=== PATIENT | female | born 1965 | race Caucasian/White ===

== ENCOUNTER 2020-09-29 19:41 | Observation (INO) | payer BC ==
[2020-09-29 22:27] LABS: ALT 65 U/L (4-34); AST 84 U/L (14-36); African American GFR (CKD) >90 (>60 ml/min/1.73 sqM); Albumin 3.2 g/dL (3.5-5.0); Alkaline Phosphatase 318 U/L (38-126); Anion Gap 15 mmol/L; Blood Urea Nitrogen 9 mg/dL (7-17); Calcium 8.9 mg/dL (8.4-10.2); Carbon Dioxide 22 mmol/L (22-30); Chloride 93 mmol/L (98-107); Glucose 471 mg/dL (74-99); Magnesium 1.7 mg/dL (1.6-2.3); Non-African American GFR(CKD) >90 (>60 ml/min/1.73 sqM); Potassium 4.5 mmol/L (3.5-5.1); Sodium 130 mmol/L (137-145); Total Bilirubin 4.8 mg/dL (0.2-1.3)
[2020-09-29 23:05] LABS: Appearance,Urine Clear (Clear); Bacteria,Urine Rare /hpf; Bilirubin,Urine 1+ (Negative); Blood,Urine Moderate (Negative); Color,Urine Yellow; Glucose,Urine (UA) 4+ (Negative); Leukocyte Esterase,Urine Negative (Negative); Nitrite,Urine Negative (Negative); PH, Urine 5.5 (5.0-8.0); Protein,Urine Trace (Negative); RBC,Urine 2 /hpf (0-5); Specific Gravity,Urine 1.036 (1.001-1.035); Squamous Epithelial Cell,Urine <1 /hpf (0-4); WBC,Urine 13 /hpf (0-5)
[2020-09-29 23:10] LABS: Partial Thromboplastin Time 25.6 sec (22.0-30.0); Prothrombin Time 10.7 sec (9.0-12.0)
[2020-09-29 23:16] LABS: Ketones,Urine 3+ (Negative)
[2020-09-29 23:18] LABS: Anisocytosis Slight; Basophils % (A) 0 %; Eosinophils % (A) 0 %; HCT 45.2 % (34.0-46.0); HGB 13.6 gm/dL (11.4-16.0); Lymphocytes # (A) 1.1 k/uL (1.0-4.8); Lymphocytes % (A) 9 %; MCH 28.4 pg (25.0-35.0); MCHC 30.2 g/dL (31.0-37.0); MCV 94.1 fL (80.0-100.0); Mean Platelet Volume 8.9; Monocytes # (A) 0.9 k/uL (0-1.0); Monocytes % (A) 8 %; Neutrophils # (A) 9.9 k/uL (1.3-7.7); Neutrophils % (A) 83 %; Platelet Count 545 k/uL (150-450); RDW 17.5 % (11.5-15.5)
[2020-09-29] MEDS ORDERED: SODIUM CHLORIDE 0.9% 1,000 ML IV ONE (23:27)
[2020-09-29] MEDS ORDERED: INSULIN REGULAR 100 UNIT/ML VIAL (IV) SQ STA (23:27)
--- NOTE | 2020-09-30 00:04 | XR ---
EXAMINATION TYPE: XR chest 2V DATE OF EXAM: 09/29/2020 COMPARISON: NONE HISTORY: Edema TECHNIQUE: 2 views FINDINGS: Heart and mediastinum are normal. There is increased density over the anterior mediastinum on the lateral view that could be some atelectasis in the right upper lobe. This is not well-seen on the frontal view. Unfortunately the arms are over the heart on the lateral view. Bony thorax is intac t. There is no pleural effusion. IMPRESSION: Possible right upper lobe atelectasis. Recommend repeat lateral view with the arms raised higher. Normal heart.
--- NOTE | 2020-09-30 01:15 | US ---
EXAM: US Duplex Bilateral Lower Extremities Veins CLINICAL HISTORY: Edema x 3 weeks. No hx of DVT. Patient does not take blood thinners. TECHNIQUE: Bilateral lower extremity deep venous system is examined utilizing real time linear array sonography with graded compression, doppler sonography and color-flow sonography. Exam limited due to edema and patient body habitus. VESSELS IMAGED: Common Femoral Vein Deep Femoral Vein Greater Saphenous Vein (superficial vessel) Femoral Vein Popliteal Vein Small Saphenous Vein (superficial vessel) Proximal Calf Veins COMPARISON: NONE FINDINGS/ IMPRESSION: Right Leg: No evidence of DVT in veins imaged at this time. Left Leg: No evidence of DVT in veins imaged at this time. Limited visibility of distal femoral vein in transverse compression views. Color flow shown.
[2020-09-30] MEDS ORDERED: SODIUM CHLORIDE 0.9% 1,000 ML IV ONE (01:34)
[2020-09-30] MEDS ORDERED: NALOXONE 0.4 MG/ML 1 ML VIAL IV PRN (01:34)
[2020-09-30] MEDS ORDERED: ONDANSETRON 4 MG/2 ML VIAL IVP PRN (01:34)
[2020-09-30] MEDS ORDERED: ACETAMINOPHEN TAB 325 MG TAB PO PRN (01:34)
--- NOTE | 2020-09-30 02:06 | ED ---
Extremity Problem HPI - General Chief complaint: Extremity Problem,Nontraumatic Stated complaint: Leg problems Time Seen by Provider: 09/29/20 21:03 Source: patient Mode of arrival: wheelchair Limitations: no limitations - History of Present Illness Initial comments: This patient is a 55-year-old woman who presents to be evaluated for bilateral leg complaints. She states that her legs have been feeling heavy and difficult to move going back for a number of weeks. Patient denies any injury that had started things. There has been no back pain. She has not noted change in urination or bowel movements. No saddle anesthesia MD Complaint: extremity swelling, other -: week(s) Location: bilateral lower extremity Quality: aching, dull Consistency: constant Improves with: nothing Associated Symptoms: denies other symptoms - Related Data Previous Rx's Medication Instructions Recorded Furosemide [Lasix] 40 mg PO BID #60 tablet 10/02/20 Insulin Glargine,Hum.rec.anlog 20 unit SQ DAILY #5 pen 10/02/20 [Lantus Solostar] Potassium Chloride ER [K-Dur 20] 20 meq PO BID #60 tab 10/02/20 metFORMIN HCL [Glucophage Xr] 500 mg PO AC-BID #60 tab.er.24h 10/02/20 Allergies Allergy/AdvReac Type Severity Reaction Status Date / Time No Known Allergies Allergy Verified 09/29/20 23:07 Review of Systems ROS Statement: Those systems with pertinent positive or pertinent negative responses have been documented in the HPI. ROS Other: All systems not noted in ROS Statement are negative. Constitutional: Denies: fever, chills Respiratory: Denies: cough, dyspnea Cardiovascular: Reports: edema. Denies: chest pain, palpitations, orthopnea, syncope Gastrointestinal: Denies: abdominal pain, vomiting, diarrhea, constipation, me tamara, hematochezia Genitourinary: Denies: dysuria, frequency, hematuria Musculoskeletal: Denies: back pain Skin: Denies: rash Neurological: Denies: headache, weakness, numbness Past Medical History Past Medical History: No Reported History History of Any Multi-Drug Resistant Organisms: None Reported Past Surgical History: No Surgical Hx Reported Past Psychological History: No Psychological Hx Reported Smoking Status: Never smoker Past Alcohol Use History: None Reported Past Drug Use History: None Reported General Exam Limitations: no limitations General appearance: alert, in no apparent distress Head exam: Present: atraumatic, normocephalic Eye exam: Present: normal appearance. Absent: scleral icterus, conjunctival injection ENT exam: Present: mucous membranes dry Neck exam: Present: normal inspection Respiratory exam: Present: normal lung sounds bilaterally. Absent: respiratory distress, wheezes, rales, rhonchi, stridor Cardiovascular Exam: Present: regular rate, normal rhythm, normal heart sounds. Absent: systolic murmur, diastolic murmur, rubs, gallop GI/Abdominal exam: Present: soft. Absent: distended, tenderness, guarding, rebound, rigid, mass Extremities exam: Present: normal inspection, full ROM, normal capillary refill, pedal edema (There is pitting edema bilaterally to the knees.). Absent: calf tenderness Back exam: Present: normal inspection. Absent: CVA tenderness (R), CVA tendern ess (L) Neurological exam: Present: alert, reflexes normal. Absent: motor sensory deficit Skin exam: Present: warm, dry, intact, normal color. Absent: rash Course Vital Signs 09/29/20 09/30/20 09/30/20 19:56 01:06 06:23 Temperature 98.6 F Pulse Rate 116 H 98 Respiratory 18 109 H 18 Rate Blood Pressure 160/96 150/85 144/90 O2 Sat by Pulse 97 98 98 Oximetry 09/30/20 09/30/20 09/30/20 10:12 11:40 14:44 Temperature Pulse Rate 101 H 104 H 104 H Respiratory 17 18 18 Rate Blood Pressure 148/96 152/98 143/90 O2 Sat by Pulse 95 98 98 Oximetry 09/30/20 15:03 Temperature 97.8 F Pulse Rate Respiratory Rate Blood Pressure O2 Sat by Pulse Oximetry Medical Decision Making - Medical Decision Making Patient is a 55-year-old woman with bilateral leg complaints. She does have pitting edema bilaterally. Workup reveals apparent new onset diabetes. In order to have patient educated will admit also for glucose control. - Lab Data Result diagrams: 10/02/20 07:25 10/02/20 07:25 Lab Results 09/29/20 09/29/20 09/29/20 Range/Units 22:03 22:03 22:03 WBC 12.0 H (3.8-10.6) k/uL RBC 4.80 (3.80-5.40) m/uL Hgb 13.6 (11.4-16.0) gm/dL Hct 45.2 (34.0-46.0) % MCV 94.1 (80.0-100.0) fL MCH 28.4 (25.0-35.0) pg MCHC 30.2 L (31.0-37.0) g/dL RDW 17.5 H (11.5-15.5) % Plt Count 545 H (150-450) k/uL MPV 8.9 Neutrophils % 83 % Lymphocytes % 9 % Monocytes % 8 % Eosinophils % 0 % Basophils % 0 % Neutrophils # 9.9 H (1.3-7.7) k/uL Lymphocytes # 1.1 (1.0-4.8) k/uL Monocytes # 0.9 (0-1.0) k/uL Eosinophils # 0.0 (0-0.7) k/uL Basophils # 0.0 (0-0.2) k/uL Anisocytosis Slight PT (9.0-12.0) sec INR (<1.2) APTT (22.0-30.0) sec D-Dimer (<0.60) mg/L FEU Sodium 130 L (137-145) mmol/L Potassium 4.5 (3.5-5.1) mmol/L Chloride 93 L (98-107) mmol/L Carbon Dioxide 22 (22-30) mmol/L Anion Gap 15 mmol/L BUN 9 (7-17) mg/dL Creatinine 0.48 L (0.52-1.04) mg/dL Est GFR (CKD-EPI)AfAm >90 (>60 ml/min/1.73 sqM) Est GFR (CKD-EPI)NonAf >90 (>60 ml/min/1.73 sqM) Glucose 471 H (74-99) mg/dL Calcium 8.9 (8.4-10.2) mg/dL Magnesium 1.7 (1.6-2.3) mg/dL Total Bilirubin 4.8 H (0.2-1.3) mg/dL AST 84 H (14-36) U/L ALT 65 H (4-34) U/L Alkaline Phosphatase 318 H (38-126) U/L Troponin I (0.000-0.034) ng/mL NT-Pro-B Natriuret Pep pg/mL Total Protein 7.0 (6.3-8.2) g/dL Albumin 3.2 L (3.5-5.0) g/dL Urine Color Yellow Urine Appearance Clear (Clear) Urine pH 5.5 (5.0-8.0) Ur Specific [place] 1.036 H (1.001-1.035) Urine Protein Trace H (Negative) Urine Glucose (UA) 4+ H (Negative) Urine Ketones 3+ H (Negative) Urine Blood Moderate H (Negative) Urine Nitrite Negative (Negative) Urine Bilirubin 1+ H (Negative) Urine Urobilinogen 8.0 (<2.0) mg/dL Ur Leukocyte Esterase Negative (Negative) Urine RBC 2 (0-5) /hpf Urine WBC 13 H (0-5) /hpf Ur Squamous Epith Cells <1 (0-4) /hpf Urine Bacteria Rare H (None) /hpf 09/29/20 09/29/20 09/29/20 Range/Units 22:03 22:03 22:03 WBC (3.8-10.6) k/uL RBC (3.80-5.40) m/uL Hgb (11.4-16.0) gm/dL Hct (34.0-46.0) % MCV (80.0-100.0) fL MCH (25.0-35.0) pg MCHC (31.0-37.0) g/dL RDW (11.5-15.5) % Plt Count (150-450) k/uL MPV Neutrophils % % Lymphocytes % % Monocytes % % Eosinophils % % Basophils % % Neutrophils # (1.3-7.7) k/uL Lymphocytes # (1.0-4.8) k/uL Monocytes # (0-1.0) k/uL Eosinophils # (0-0.7) k/uL Basophils # (0-0.2) k/uL Anisocytosis PT 10.7 (9.0-12.0) sec INR 1.0 (<1.2) APTT 25.6 (22.0-30.0) sec D-Dimer 0.82 H (<0.60) mg/L FEU Sodium (137-145) mmol/L Potassium (3.5-5.1) mmol/L Chloride (98-107) mmol/L Carbon Dioxide (22-30) mmol/L Anion Gap mmol/L BUN (7-17) mg/dL Creatinine (0.52-1.04) mg/dL Est GFR (CKD-EPI)AfAm (>60 ml/min/1.73 sqM) Est GFR (CKD-EPI)NonAf (>60 ml/min/1.73 sqM) Glucose (74-99) mg/dL Calcium (8.4-10.2) mg/dL Magnesium (1.6-2.3) mg/dL Total Bilirubin (0.2-1.3) mg/dL AST (14-36) U/L ALT (4-34) U/L Alkaline Phosphatase (38-126) U/L Troponin I <0.012 (0.000-0.034) ng/mL NT-Pro-B Natriuret Pep 335 pg/mL Total Protein (6.3-8.2) g/dL Albumin (3.5-5.0) g/dL Urine Color Urine Appearance (Clear) Urine pH (5.0-8.0) Ur Specific [place] (1.001-1.035) Urine Protein (Negative) Urine Glucose (UA) (Negative) Urine Ketones (Negative) Urine Blood (Negative) Urine Nitrite (Negative) Urine Bilirubin (Negative) Urine Urobilinogen (<2.0) mg/dL Ur Leukocyte Esterase (Negative) Urine RBC (0-5) /hpf Urine WBC (0-5) /hpf Ur Squamous Epith Cells (0-4) /hpf Urine Bacteria (None) /hpf Disposition Clinical Impression: Diabetes mellitus, new onset, Leg edema Disposition: ADMITTED IP TO THIS HOSP Condition: Good
[2020-09-30] MEDS: SODIUM CHLORIDE 0.9% 1,000 ML IV SCH ×2 (03:41→11:44)
[2020-09-30 07:53] LABS: Glucose,Whole Blood 398 mg/dL (75-99)
[2020-09-30] MEDS: INSULIN ASPART (NovoLOG) 100 UNIT/ML VIAL SQ SCH ×4 (07:56→20:17)
[2020-09-30 11:59] LABS: Glucose,Whole Blood 324 mg/dL (75-99)
[2020-09-30] MEDS ORDERED: MAGNESIUM SULFATE-D5W PMX 1 GM in DEXTROSE/WATER 1 100ML.BAG IVPB ONE (12:06)
[2020-09-30] MEDS: FUROSEMIDE 10 MG/ML 4 ML VIAL IV SCH ×2 (12:21→20:18)
--- NOTE | 2020-09-30 13:53 | P.HPIM ---
History of Present Illness 64-year-old pleasant female came in with complaints of bilateral lower limb swelling which has been going on for a few weeks on and off. Patient denied any short of breath orthopnea or proximal nocturnal dyspnea BNP is only 300. Luis pierce doesn't have any JVD. Chest x-ray did not show any pneumonia or CHF. Patient was also complaining of polyuria or polydipsia along with cramping in both legs found to have hyponatremia and hyperglycemia with blood sugars going up to 400. Patient is not a known diabetic. Review of Systems REVIEW OF SYSTEMS: CONSTITUTIONAL: No fever, no malaise, no fatigue. HEENT: No recent visual problems or hearing problems. Denied any sore throat. CARDIOVASCULAR: No chest pain, orthopnea, PND, no palpitations, no syncope. PULMONARY: No shortness of breath, no cough, no hemoptysis. GASTROINTESTINAL: No diarrhea, no nausea, no vomiting, no abdominal pain. NEUROLOGICAL: No headaches, no weakness, no numbness. HEMATOLOGICAL: Denies any bleeding or petechiae. GENITOURINARY: Denies any burning micturition, frequency, or urgency. MUSCULOSKELETAL/RHEUMATOLOGICAL: Denies any joint pain, swelling, or any muscle pain. ENDOCRINE: As mentioned in HPI The rest of the 14-point review of systems is negative. Past Medical History Past Medical History: No Reported History History of Any Multi-Drug Resistant Organisms: None Reported Past Surgical History: No Surgical Hx Reported Past Psychological History: No Psychological Hx Reported Smoking Status: Never smoker Past Alcohol Use History: None Reported Past Drug Use History: None Reported Medications and Allergies Home Medications Medication Instructions Recorded Confirmed Type No Known Home Medications 09/29/20 09/29/20 History Allergies Allergy/AdvReac Type Severity Reaction Status Date / Time No Known Allergies Allergy Verified 09/29/20 23:07 Physical Exam Vitals: Vital Signs Temp Pulse Resp BP Pulse Ox 09/30/20 11:40 104 H 18 152/98 98 09/30/20 10:12 101 H 17 148/96 95 09/30/20 06:23 98 18 144/90 98 09/30/20 01:06 109 H 150/85 98 09/29/20 19:56 98.6 F 116 H 18 160/96 97 Intake and Output 09/29/20 09/30/20 09/30/20 22:59 06:59 14:59 Other: Weight 63.503 kg PHYSICAL EXAMINATION: GENERAL: The patient is alert and oriented x3, not in any acute distress. Well developed, well nourished. HEENT: Pupils are round and equally reacting to light. EOMI. No scleral icterus. No conjunctival pallor. Normocephalic, atraumatic. No pharyngeal erythema. No thyromegaly. CARDIOVASCULAR: S1 and S2 present. No murmurs, rubs, or gallops. PULMONARY: Chest is clear to auscultation, no wheezing or crackles. ABDOMEN: Soft, nontender, nondistended, normoactive bowel sounds. No palpable organomegaly. MUSCULOSKELETAL: No joint swelling or deformity. EXTREMITIES: No cyanosis, clubbing, 2+ pitting pedal edema extending up to bilateral knees NEUROLOGICAL: Gross neurological examination did not reveal any focal deficits. SKIN: No rashes. Results CBC & Chem 7: 09/29/20 22:03 09/29/20 22:03 Labs: Abnormal Lab Results - Last 24 Hours (Table) 09/29/20 09/29/20 09/29/20 Range/Units 22:03 22:03 22:03 WBC 12.0 H (3.8-10.6) k/uL MCHC 30.2 L (31.0-37.0) g/dL RDW 17.5 H (11.5-15.5) % Plt Count 545 H (150-450) k/uL Neutrophils # 9.9 H (1.3-7.7) k/uL D-Dimer (<0.60) mg/L FEU Sodium 130 L (137-145) mmol/L Chloride 93 L (98-107) mmol/L Creatinine 0.48 L (0.52-1.04) mg/dL Glucose 471 H (74-99) mg/dL POC Glucose (mg/dL) (75-99) mg/dL Total Bilirubin 4.8 H (0.2-1.3) mg/dL AST 84 H (14-36) U/L ALT 65 H (4-34) U/L Alkaline Phosphatase 318 H (38-126) U/L Albumin 3.2 L (3.5-5.0) g/dL Ur Specific [place] 1.036 H (1.001-1.035) Urine Protein Trace H (Negative) Urine Glucose (UA) 4+ H (Negative) Urine Ketones 3+ H (Negative) Urine Blood Moderate H (Negative) Urine Bilirubin 1+ H (Negative) Urine WBC 13 H (0-5) /hpf Urine Bacteria Rare H (None) /hpf 09/29/20 09/30/20 09/30/20 Range/Units 22:03 07:51 11:57 WBC (3.8-10.6) k/uL MCHC (31.0-37.0) g/dL RDW (11.5-15.5) % Plt Count (150-450) k/uL Neutrophils # (1.3-7.7) k/uL D-Dimer 0.82 H (<0.60) mg/L FEU Sodium (137-145) mmol/L Chloride (98-107) mmol/L Creatinine (0.52-1.04) mg/dL Glucose (74-99) mg/dL POC Glucose (mg/dL) 398 H 324 H (75-99) mg/dL Total Bilirubin (0.2-1.3) mg/dL AST (14-36) U/L ALT (4-34) U/L Alkaline Phosphatase (38-126) U/L Albumin (3.5-5.0) g/dL Ur Specific [place] (1.001-1.035) Urine Protein (Negative) Urine Glucose (UA) (Negative) Urine Ketones (Negative) Urine Blood (Negative) Urine Bilirubin (Negative) Urine WBC (0-5) /hpf Urine Bacteria (None) /hpf Assessment and Plan Plan: Bilateral lower x-ray swelling: Rule out DVT doesn't have CHF probably chronic venous insufficiency patient was started on IV Lasix. -Bilateral lower extremity cramping secondary to hyponatremia -New diagnosis of type 2 diabetes mellitus and globin A1c is pending. Patient will be started on 20 units of long-acting insulin along with sliding scale patient will be started on metformin upon discharge along with long-acting insulin. -Pseudohyponatremia secondary to hyperglycemia -Hypervolemic hyponatremia: Expected to improve with Lasix next and- Mild nonspecific elevation of liver enzymes no further intervention at this time - leukocytosis reactive. -DVT prophylaxis early ambulation
[2020-09-30 17:35] LABS: Glucose,Whole Blood 362 mg/dL (75-99)
[2020-09-30 20:06] LABS: Glucose,Whole Blood 388 mg/dL (75-99)
[2020-09-30] MEDS: INSULIN DETEMIR (LEVEMIR) 100 UNIT/ML SYR SQ SCH (20:17)
[2020-10-01 06:45] LABS: African American GFR (CKD) >90 (>60 ml/min/1.73 sqM); Anion Gap 1 mmol/L; Blood Urea Nitrogen 9 mg/dL (7-17); Calcium 7.6 mg/dL (8.4-10.2); Carbon Dioxide 33 mmol/L (22-30); Chloride 101 mmol/L (98-107); Glucose 139 mg/dL (74-99); Non-African American GFR(CKD) >90 (>60 ml/min/1.73 sqM); Potassium 3.8 mmol/L (3.5-5.1); Sodium 135 mmol/L (137-145)
[2020-10-01 07:11] LABS: Glucose,Whole Blood 139 mg/dL (75-99)
[2020-10-01] MEDS: INSULIN ASPART (NovoLOG) 100 UNIT/ML VIAL SQ SCH ×4 (08:21→20:53)
[2020-10-01] MEDS: FUROSEMIDE 10 MG/ML 4 ML VIAL IV SCH ×2 (08:22→16:22)
[2020-10-01 12:08] LABS: Glucose,Whole Blood 303 mg/dL (75-99)
--- NOTE | 2020-10-01 15:35 | P.PN ---
Subjective Patient was admitted for peripheral edema secondary to chronic venous stasis without any evidence of congestive heart failure, liver disease or kidney disease. Patient's albumin is slightly low. Patient is diagnosed with a type 2 diabetes mellitus this is a new diagnosis patient blood sugars are well controlled with 20 units of Lantus at this time. Patient has mildly elevated d- dimer the pretest probability for pulmonary embolism is low will not do any further testing. Patient urinated well, after that patient urine output has come down we'll increase the dose of Lasix to 40 mg every 8 hourly. Ruled out DVT. Constitutional: Denied any fatigue denied any fever. Cardio vascular: denied any chest pain, palpitations Gastrointestinal denied any nausea vomiting Pulmonary: Denied any shortness of breath cough Neurologic denied any new focal deficits All inpatient medications were reviewed and appropriate changes in these medications as dictated in the interval history and assessment and plan. Objective - Vital Signs Vital signs: Vital Signs Temp 98.0 F 10/01/20 14:59 Pulse 107 H 10/01/20 14:59 Resp 20 10/01/20 14:59 BP 132/80 10/01/20 14:59 Pulse Ox 97 10/01/20 14:59 Intake & Output 09/30/20 10/01/20 10/01/20 18:59 06:59 18:59 Weight 63.503 kg Other: Voiding Method Toilet # Voids 3 # Bowel Movements 1 - Exam PHYSICAL EXAMINATION: GENERAL: The patient is alert and oriented x3, not in any acute distress. Well developed, well nourished. HEENT: Pupils are round and equally reacting to light. EOMI. No scleral icterus. No conjunctival pallor. Normocephalic, atraumatic. No pharyngeal erythema. No thyromegaly. CARDIOVASCULAR: S1 and S2 present. No murmurs, rubs, or gallops. PULMONARY: Chest is clear to auscultation, no wheezing or crackles. ABDOMEN: Soft, nontender, nondistended, normoactive bowel sounds. No palpable organomegaly. MUSCULOSKELETAL: No joint swelling or deformity. EXTREMITIES: No cyanosis, clubbing, 2+ pitting pedal edema extending up to bila teral knees NEUROLOGICAL: Gross neurological examination did not reveal any focal deficits. SKIN: No rashes. - Labs CBC & Chem 7: 09/29/20 22:03 06/05/21 05:58 Labs: Abnormal Lab Results - Last 24 Hours (Table) 09/30/20 09/30/20 10/01/20 Range/Units 17:34 20:05 05:58 Sodium 135 L (137-145) mmol/L Carbon Dioxide 33 H (22-30) mmol/L Creatinine 0.49 L (0.52-1.04) mg/dL Glucose 139 H (74-99) mg/dL POC Glucose (mg/dL) 362 H 388 H (75-99) mg/dL Calcium 7.6 L (8.4-10.2) mg/dL 10/01/20 10/01/20 Range/Units 07:09 12:07 Sodium (137-145) mmol/L Carbon Dioxide (22-30) mmol/L Creatinine (0.52-1.04) mg/dL Glucose (74-99) mg/dL POC Glucose (mg/dL) 139 H 303 H (75-99) mg/dL Calcium (8.4-10.2) mg/dL Assessment and Plan Plan: Bilateral lower x-ray swelling: Rule out DVT doesn't have CHF probably chronic venous insufficiency patient was started on IV Lasix. -Bilateral lower extremity cramping secondary to hyponatremia, hyponatremia improved -New diagnosis of type 2 diabetes mellitus and globin A1c is pending. Patient will be started on 20 units of long-acting insulin along with sliding scale, well controlled blood sugars -Pseudohyponatremia secondary to hyperglycemia -Hypervolemic hyponatremia: Improved with Lasix Mild nonspecific elevation of liver enzymes no further intervention at this time we'll repeat liver enzymes tomorrow - leukocytosis reactive. -DVT prophylaxis early ambulation
[2020-10-01] MEDS: ENOXAPARIN 40 MG/0.4 ML SYRINGE SQ SCH (16:22)
[2020-10-01 17:25] LABS: Glucose,Whole Blood 429 mg/dL (75-99)
[2020-10-01 20:34] LABS: Glucose,Whole Blood 378 mg/dL (75-99)
[2020-10-01] MEDS: INSULIN DETEMIR (LEVEMIR) 100 UNIT/ML SYR SQ SCH (20:53)
[2020-10-02] MEDS: FUROSEMIDE 10 MG/ML 4 ML VIAL IV SCH ×2 (00:07→08:01)
[2020-10-02 07:13] LABS: Glucose,Whole Blood 153 mg/dL (75-99)
[2020-10-02 07:46] VITALS: BP 118/78; PULSE 94; RESP 16; TEMP 97.8
[2020-10-02] MEDS: INSULIN ASPART (NovoLOG) 100 UNIT/ML VIAL SQ SCH ×2 (08:02→13:02)
[2020-10-02] MEDS: ENOXAPARIN 40 MG/0.4 ML SYRINGE SQ SCH (08:53)
[2020-10-02 12:05] LABS: Glucose,Whole Blood 256 mg/dL (75-99)
--- NOTE | 2020-10-02 12:23 | P.DS ---
Providers Date of admission: 09/30/20 01:35 Attending physician: Papa Graves Primary care physician: Stated None Hospital Course: Patient was admitted for peripheral edema secondary to chronic venous stasis without any evidence of congestive heart failure, liver disease or kidney disease. Patient's albumin is slightly low. Patient is diagnosed with a type 2 diabetes mellitus this is a new diagnosis patient blood sugars are well controlled with 20 units of Lantus at this time. Patient has mildly elevated d- dimer the pretest probability for pulmonary embolism is low will not do any further testing. Patient urinated well, after that patient urine output has come down we'll increase the dose of Lasix to 40 mg every 8 hourly. Ruled out DVT. 10/02/2020 Patient still has significant swelling but patient wanted to go home today patient will be discharged on Lasix with repeat basic metabolic profile as an outpatient. Patient will need to check her blood sugars twice a day diabetic education was provided, patient will follow-up with the certified lactation educator as an outpatient. Appropriate prescriptions for glucometer and other supplies were provided PHYSICAL EXAMINATION: GENERAL: The patient is alert and oriented x3, not in any acute distress. Well developed, well nourished. HEENT: Pupils are round and equally reacting to light. EOMI. No scleral icterus. No conjunctival pallor. Normocephalic, atraumatic. No pharyngeal erythema. No thyromegaly. CARDIOVASCULAR: S1 and S2 present. No murmurs, rubs, or gallops. PULMONARY: Chest is clear to auscultation, no wheezing or crackles. ABDOMEN: Soft, nontender, nondistended, normoactive bowel sounds. No palpable organomegaly. MUSCULOSKELETAL: No joint swelling or deformity. EXTREMITIES: No cyanosis, clubbing, extensive bilateral pitting pedal edema NEUROLOGICAL: Gross neurological examination did not reveal any focal deficits. SKIN: No rashes. Assessment and Plan Plan: Bilateral lower x-ray swelling: Rule out DVT doesn't have CHF probably chronic venous insufficiency patient is being discharged on oral Lasix -Bilateral lower extremity cramping secondary to hyponatremia, hyponatremia improved -New diagnosis of type 2 diabetes mellitus and globin A1c is 11. Highly fluctuating blood sugars patient will be discharged on 20 units of Lantus along with metformin twice a day -Pseudohyponatremia secondary to hyperglycemia, resolved -Hypervolemic hyponatremia: Improved with Lasix Mild nonspecific elevation of liver enzymes no further intervention at this time we'll repeat liver enzymes tomorrow - leukocytosis reactive. Patient Condition at Discharge: Good Plan - Discharge Summary Discharge Rx Participant: Yes New Discharge Prescriptions: New Potassium Chloride ER [K-Dur 20] 20 meq PO BID #60 tab Insulin Glargine,Hum.rec.anlog [Lantus Solostar] 20 unit SQ DAILY #5 pen Furosemide [Lasix] 40 mg PO BID #60 tablet metFORMIN HCL [Glucophage Xr] 500 mg PO AC-BID #60 tab.er.24h Discharge Medication List Furosemide [Lasix] 40 mg PO BID #60 tablet 10/02/20 [Rx] Insulin Glargine,Hum.rec.anlog [Lantus Solostar] 20 unit SQ DAILY #5 pen 10/02/20 [Rx] Potassium Chloride ER [K-Dur 20] 20 meq PO BID #60 tab 10/02/20 [Rx] metFORMIN HCL [Glucophage Xr] 500 mg PO AC-BID #60 tab.er.24h 10/02/20 [Rx] Follow up Appointment(s)/Referral(s): Johnny Mitchell MD [STAFF PHYSICIAN] - 3 Days (This appointment would be a hospital follow up and new patient appointment. ) Ambulatory/Diagnostic Orders: Basic Metabolic Panel [LAB.AMB] Time Frame: 3 Days, Location: None Selected Patient Instructions/Handouts: Type 2 Diabetes in Adults: New Diagnosis (DC) Activity/Diet/Wound Care/Special Instructions: Will need top notify [facility] at discharge to have glucometer delievered Diabetic testing supplies are ordered through [facility] at [facility]. They can be contacted at [phone] when more supplies needed. Discharge Disposition: HOME SELF-CARE
[2020-10-02 12:25] LABS: HCT 37.2 % (37.2-46.3); HGB 11.5 g/dL (12.0-15.0); MCH 28.8 pg (27.0-32.0); MCHC 30.9 g/dL (32.0-37.0); MCV 93.2 fL (80.0-97.0); Mean Platelet Volume 10.8 fL (9.5-12.2); Platelet Count 438 X 10*3/uL (140-440); RBC 3.99 X 10*6/uL (4.10-5.20); RDW 17.6 % (11.5-14.5); WBC 10.62 X 10*3/uL (4.50-10.00)
[2020-10-02 12:48] LABS: African American GFR (CKD) 134.9 (60.0-200.0); Albumin 2.8 g/dL (3.80-4.90); Albumin/Globulin Ratio 0.88 (1.60-3.17); Anion Gap 11.4 mmol/L (4.00-12.00); BUN/Creat Ratio 32.5 Ratio (12.00-20.00); Calcium 7.8 mg/dL (8.7-10.3); Carbon Dioxide 32.6 mmol/L (21.6-31.8); Globulin 3.2 g/dL (1.6-3.3); Non-African American GFR(CKD) 116.4 (60.0-200.0); Potassium 3.6 mmol/L (3.5-5.5); Total Bilirubin 3.4 mg/dL (0.3-1.2)
== END 2020-10-02 15:54 | disposition home or self-care (01) ==
LOC: EC 19:41 → 1SOBS 09-30 01:35 → 6NMEDSUR 09-30 07:31
PROVIDERS: ADMIT Hospitalist; ATTEND Hospitalist
DX: E11.65 Type 2 diabetes mellitus with hyperglycemia (principal); E87.1 Hypo-osmolality and hyponatremia; E87.70 Fluid overload, unspecified; R60.0 Localized edema; I87.8 Other specified disorders of veins; D72.829 Elevated white blood cell count, unspecified; Z20.822 Contact with and (suspected) exposure to COVID-19
CPT/HCPCS: 96376 ×3; 96372; 96361; 96365; 96375; 99285; 36415; 85379; 83880; 80053 ×2; 80048; 83735; 84484; 85025; 85027; 85610; 85730; 81001; 83036; 87635; 71046; 93970; G0378 ×3; J1940 ×3; J1650 ×2; J3475

== ENCOUNTER 2020-10-04 10:36 | Inpatient (IN) | payer BC ==
[2020-10-05 14:18] VITALS: BMI 33.4
[2020-10-10 20:09] VITALS: RESP 16
[2020-10-11 05:34] VITALS: BP 109/70; PULSE 85; TEMP 98.1
== END 2020-10-11 11:08 | disposition home or self-care (01) | DRG 435 ==
LOC: 5NMEDONC 13:26
PROVIDERS: ADMIT Family Medicine; ATTEND Family Medicine
PROC: 0FB23ZX Excision of Left Lobe Liver, Percutaneous Approach, Diagnostic (ICD-10-PCS; principal; 2020-10-07)
PROC: 0DBP8ZX Excision of Rectum, Via Natural or Artificial Opening Endoscopic, Diagnostic (ICD-10-PCS; 2020-10-10)
DX: C78.7 Secondary malignant neoplasm of liver and intrahepatic bile duct (principal); K72.00 Acute and subacute hepatic failure without coma; C78.5 Secondary malignant neoplasm of large intestine and rectum; R18.8 Other ascites; K62.5 Hemorrhage of anus and rectum; C43.9 Malignant melanoma of skin, unspecified; E11.65 Type 2 diabetes mellitus with hyperglycemia; Z79.4 Long term (current) use of insulin; Z20.822 Contact with and (suspected) exposure to COVID-19; E87.6 Hypokalemia; D64.9 Anemia, unspecified; D25.9 Leiomyoma of uterus, unspecified; I89.0 Lymphedema, not elsewhere classified; K59.00 Constipation, unspecified; R19.7 Diarrhea, unspecified; R26.2 Difficulty in walking, not elsewhere classified; E66.9 Obesity, unspecified; Z68.33 Body mass index [BMI] 33.0-33.9, adult; Z79.899 Other long term (current) drug therapy; Z71.3 Dietary counseling and surveillance; Z83.79 Family history of other diseases of the digestive system
CPT/HCPCS: 45385; 47000; 71260; 74176; 76700; 76830; 77012; 80053; 80074; 82103; 82105; 82140; 82248; 82272; 82390; 82728; 83516; 83540; 83550; 83690; 84165; 84681; 85025; 85610; 86038; 86301; 86304; 86376; 87635; 88305; 88307; 88341; 88342; 93005

== ENCOUNTER → 2020-10-21 | Outpatient (CLI) | payer BC ==
--- NOTE | 2020-10-22 03:41 | MR ---
EXAMINATION TYPE: MR brain wo/w con DATE OF EXAM: 10/21/2020 COMPARISON: None HISTORY: Melanoma, evaluate for metastatic disease. CONTRAST: Standard multiplanar, multisequence MRI departmental protocol utilizing 9.5 mL intravenous Gadavist g adolinium contrast. Ventricles have fairly normal size. There is no mass effect nor midline shift. There is no sign of in tracranial hemorrhage. Diffusion images show no evidence of an acute infarct. The no-white matter s tructures have fairly normal signal pattern. There is no evidence of cerebral edema. The brainstem is intact. Corpus callosum is intact. Sella turcica appears normal. Orbits appear normal. There is no r etro-orbital mass. There is normal enhancement of the venous sinuses. I see no pathologic enhancement. IMPRESSION: Normal MR scan of the brain. No evidence of metastatic disease.
== END | disposition home or self-care (01) ==
LOC: RADMRIMAIN 14:46
PROVIDERS: ATTEND Internal Medicine Hematology & Oncology
DX: C43.9 Malignant melanoma of skin, unspecified (principal)
CPT/HCPCS: 70553; A9585

== ENCOUNTER 2020-10-28 07:20 | Day surgery (SDC) | payer BC ==
[2020-10-26 17:40] VITALS: BMI 31.4
[~2020-10-28 07:20] MED LIST: LACTATED RINGERS 1,000 ML IV SCH
[2020-10-28] MEDS ORDERED: LIDOCAINE 1% (10MG/ML) FOR IV START INTRADERMA ONE (07:57)
[2020-10-28 07:59] LABS: Glucose,Whole Blood 237 mg/dL (75-99)
[2020-10-28 08:01] VITALS: TEMP 96.9
[2020-10-28] MEDS ORDERED: PROPOFOL 10 MG/ML 20 ML VIAL IV ONE (08:06)
[2020-10-28 08:33] VITALS: RESP 16
--- NOTE | 2020-10-28 08:34 | P.PCN ---
Date of Procedure: 10/28/20 Procedure(s) Performed: BRIEF HISTORY: Patient is a 55-year-old pleasant white female scheduled for an elective colonoscopy as a part of evaluation of metastatic liver disease noted on recent CAT scan in the first week of September during recent hospitalization. She had liver biopsy done that showed evidence of metastatic malignancy but definite characterization was not performed because of insufficient specimen. Subsequently she had a colonoscopy by Dr. Ahmadi that revealed a large distal rectal polyp that was removed by snare polypectomy which showed malignant melanoma involvement to the margin with lymphovascular invasion. However the colonoscopy was not completed because of the poor prep. She is scheduled for repeat colonoscopy to evaluate the rest of the colon PROCEDURE PERFORMED: Colonoscopy with biopsy and snare polypectomy. PREOPERATIVE DIAGNOSIS: Follow-up malignant melanoma of the distal rectum noted on recent colonoscopy performed 2 weeks ago. IV sedation per Anesthesia. PROCEDURE: After informed consent was obtained, the patient, was brought into the endoscopy unit. IV sedation was administered by Anesthesia under continuous monitoring. Digital rectal examination revealed some elective irregularity of the anal canal along the left side.. Initially the Olympus CF-160 flexible video colonoscope was then inserted in the rectum, gradually advanced into the cecum without any difficulty. Careful examination was performed as the scope was gradually being withdrawn. Ileocecal valve and the appendiceal orifice were visualized and appeared normal. Prep was excellent. Mucosa of the cecum, ascending colon, transverse colon, descending colon, appeared normal. The distal sigmoid colon there was a 5 mm polyp removed by snare polypectomy. In the proximal rectum there was another 5 mm polyp removed by snare polypectomy. Retroflexion was performed in the rectum and no lesions were seen. In the anal canal there was a 1.5-2 cm clean-based ulcer with slightly irregular margins noted. This was at the site of previous polypectomy. Multiple biopsies from done from the margins of the ulcer. The patient tolerated the procedure well. IMPRESSION: 1.5-2 cm clean-based ulcer at the site of previous polypectomy in the anal canal with slightly friable margins with no residual polyp. Status post multiple biopsies from the margin of the ulcer 5 mm proximal rectal polyp status post polypectomy 5 mm distal sigmoid colon polyp status post polypectomy RECOMMENDATIONS: Findings of this examination were discussed with the patient as well as a family. She was advised to follow with the biopsy results. She'll follow with Dr. Dailey scheduled.
[2020-10-28 08:37] LABS: Glucose,Whole Blood 253 mg/dL (75-99)
[2020-10-28] MEDS ORDERED: INSULIN ASPART (NovoLOG) 100 UNIT/ML VIAL SQ ONE (08:47)
[2020-10-28 08:52] VITALS: BP 130/84; PULSE 84
[2020-10-28 09:24] LABS: Glucose,Whole Blood 233 mg/dL (75-99)
== END 2020-10-28 09:36 | disposition home or self-care (01) ==
LOC: ORWHC2ENDO 07:20
PROVIDERS: ATTEND Internal Medicine Gastroenterology
DX: D12.8 Benign neoplasm of rectum (principal); C21.0 Malignant neoplasm of anus, unspecified; E11.9 Type 2 diabetes mellitus without complications; Z79.4 Long term (current) use of insulin; C20 Malignant neoplasm of rectum; K63.5 Polyp of colon
CPT/HCPCS: 88305; 88342; 88341; 45380; 45385; J2704

== ENCOUNTER → 2020-12-05 | Outpatient (CLI) | payer BC ==
--- NOTE | 2020-12-05 10:43 | US ---
EXAMINATION TYPE: US venous doppler duplex LE RT DATE OF EXAM: 12/05/2020 10:36 AM COMPARISON: US 09/30/2020 CLINICAL HISTORY: R22.41 SWELLING OF RIGHT LOWER LIMB,R00.0,R06.02. SIDE PERFORMED: Right TECHNIQUE: The lower extremity deep venous system is examined utilizing real time linear array sonog jignesh with graded compression, doppler sonography and color-flow sonography. VESSELS IMAGED: Common Femoral Vein Deep Femoral Vein Greater Saphenous Vein * Femoral Vein Popliteal Vein Small Saphenous Vein * Proximal Calf Veins (* superficial vessels) Right Leg: Negative for DVT IMPRESSION: 1. Right lower extremity ultrasound negative for deep venous thrombosis.
[2020-12-05 11:25] LABS: African American GFR (CKD) >90 (>60 ml/min/1.73 sqM); Blood Urea Nitrogen 20 mg/dL (7-17); Non-African American GFR(CKD) >90 (>60 ml/min/1.73 sqM)
--- NOTE | 2020-12-05 12:18 | CT ---
EXAMINATION TYPE: CT angio chest DATE OF EXAM: 12/05/2020 11:59 AM COMPARISON: HISTORY: SOB, Rt lower leg swelling CT DLP: 440 mGycm Automated exposure control for dose reduction was used. CONTRAST: CTA scan of the thorax is performed with IV Contrast, patient injected with 59 mL of Isovue 370, pulm onary embolism protocol. . FINDINGS: LUNGS: There are multiple subpleural less than 5 mm pulmonary nodules. Localized area pleural thicken ing involving the lateral right midlung noted. 5 mm nodule left lower lobe.. There is no pleural ef fusion or pneumothorax seen. The tracheobronchial tree is patent. MEDIASTINUM: There is optimal enhancement of the pulmonary artery and its branches, there is no CT ev idence for central pulmonary embolism. There are no greater than 1 cm hilar or mediastinal lymph nod es. No pericardial effusion is seen. OTHER: There is markedly enlarged with suspected intrahepatic lesions. Small amount of fluid seen an terior and superior to the liver. IMPRESSION: 1. Suboptimal enhancement of the pulmonary arteries with no diagnostic evidence of central pulmonary embolism. 2. Multiple subpleural and intraparenchymal 5 mm or less pulmonary nodules the largest seen within th e left lower lobe measuring 5 mm too small to characterize. However, nodule in the left lower lobe pr eviously measured approximately 2.5 mm suggesting interval growth. Metastases in the differential yash gnosis. 3. Marked hepatomegaly with suspected intrahepatic multiple masses and trace amount of ascites.
== END | disposition home or self-care (01) ==
LOC: RADUSWWP 10:21
PROVIDERS: ATTEND Internal Medicine Hematology & Oncology
DX: R00.0 Tachycardia, unspecified (principal); R22.41 Localized swelling, mass and lump, right lower limb
CPT/HCPCS: 82565; 84520; 93971; 71275; Q9967

== ENCOUNTER 2021-01-25 15:28 | Inpatient (IN) | payer BC ==
[2021-01-25] MEDS ORDERED: SODIUM CHLORIDE 0.9% 1,000 ML IV STA (19:08)
--- NOTE | 2021-01-25 19:31 | ED ---
General Adult HPI - General Chief complaint: Recheck/Abnormal Lab/Rx Stated complaint: Difficulty walking Time Seen by Provider: 01/25/21 19:06 Source: patient Mode of arrival: wheelchair Limitations: no limitations - History of Present Illness Initial comments: 55-year-old female with a past medical history of diabetes, melanoma with suspected metastasis to the liver for presents to the emergency room for a chief complaint of jaundice. Patient states over the past 4 or 5 days she has become more jaundiced than normal. She states she has become weaker and had trouble walking. Denies abdominal pain. She called her doctor today who recommended s he come to the emergency room for admission.Patient has no other complaints at this time including shortness of breath, chest pain, nausea or vomiting, headache, or visual changes. - Related Data Home Medications Medication Instructions Recorded Confirmed Insulin Glargine,Hum.rec.anlog 20 unit SQ HS 10/26/20 10/28/20 [Lantus Solostar Pen] Previous Rx's Medication Instructions Recorded Furosemide [Lasix] 40 mg PO BID #60 tablet 10/02/20 Potassium Chloride ER [K-Dur 20] 20 meq PO BID #60 tab 10/02/20 metFORMIN HCL [Glucophage Xr] 500 mg PO AC-BID #60 tab.er.24h 10/02/20 Allergies Allergy/AdvReac Type Severity Reaction Status Date / Time No Known Allergies Allergy Verified 01/25/21 16:37 Review of Systems ROS Statement: Those systems with pertinent positive or pertinent negative responses have been documented in the HPI. ROS Other: All systems not noted in ROS Statement are negative. Past Medical History Past Medical History: Cancer, Diabetes Mellitus, Liver Disease Additional Past Medical History / Comment(s): colon polyp indicated cancer. swelling feet and lower legs History of Any Multi-Drug Resistant Organisms: None Reported Past Surgical History: No Surgical Hx Reported, Orthopedic Surgery Additional Past Surgical History / Comment(s): colonoscopy. lt wrist surgery age 5 Past Anesthesia/Blood Transfusion Reactions: No Reported Reaction Past Psychological History: Anxiety Smoking Status: Never smoker Past Alcohol Use History: None Reported Past Drug Use History: None Reported General Exam Limitations: no limitations General appearance: alert, in no apparent distress Head exam: Present: atraumatic Eye exam: Present: normal appearance, PERRL, EOMI. Absent: scleral icterus, conjunctival injection ENT exam: Present: normal exam, mucous membranes moist Neck exam: Present: normal inspection, full ROM. Absent: tenderness Respiratory exam: Present: normal lung sounds bilaterally. Absent: respiratory distress, wheezes Cardiovascular Exam: Present: regular rate, normal rhythm, normal heart sounds GI/Abdominal exam: Present: distended Course Vital Signs 01/25/21 16:38 Temperature 98.4 F Pulse Rate 92 Respiratory 20 Rate Blood Pressure 127/77 O2 Sat by Pulse 93 L Oximetry Medical Decision Making - Medical Decision Making Vitals are stable. CBC is unremarkable. CMP does show an elevated bilirubin of 15.8 with transaminitis urinalysis does show 182 red blood cells as well. Culture pending. Ultrasound of the gallbladder and right upper quadrant shows markedly enlarged liver with multiple masses and no dilated ducts or evidence of gallstones. Case was discussed with Dr. Mitchell. He would like to admit patient here and consult Dr. Akins. 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 Would like fluids given overnight - Lab Data Result diagrams: 01/25/21 19:44 01/25/21 19:44 Lab Results 01/25/21 01/25/21 01/25/21 Range/Units 19:44 19:44 19:44 WBC 10.5 (3.8-10.6) k/uL RBC 4.51 (3.80-5.40) m/uL Hgb 14.5 (11.4-16.0) gm/dL Hct 45.0 (34.0-46.0) % MCV 99.9 (80.0-100.0) fL MCH 32.1 (25.0-35.0) pg MCHC 32.1 (31.0-37.0) g/dL RDW 15.3 (11.5-15.5) % Plt Count 502 H (150-450) k/uL MPV 7.6 Neutrophils % 82 % Lymphocytes % 9 % Monocytes % 6 % Eosinophils % 1 % Basophils % 1 % Neutrophils # 8.5 H (1.3-7.7) k/uL Lymphocytes # 1.0 (1.0-4.8) k/uL Monocytes # 0.6 (0-1.0) k/uL Eosinophils # 0.1 (0-0.7) k/uL Basophils # 0.1 (0-0.2) k/uL Macrocytosis Slight PT 12.2 H (9.0-12.0) sec INR 1.2 H (<1.2) APTT 30.4 H (22.0-30.0) sec Sodium 130 L (137-145) mmol/L Potassium 4.0 (3.5-5.1) mmol/L Chloride 102 (98-107) mmol/L Carbon Dioxide 18 L (22-30) mmol/L Anion Gap 10 mmol/L BUN 14 (7-17) mg/dL Creatinine 0.55 (0.52-1.04) mg/dL Est GFR (CKD-EPI)AfAm >90 (>60 ml/min/1.73 sqM) Est GFR (CKD-EPI)NonAf >90 (>60 ml/min/1.73 sqM) Glucose 156 H (74-99) mg/dL Calcium 8.9 (8.4-10.2) mg/dL Magnesium 2.0 (1.6-2.3) mg/dL Total Bilirubin 15.8 H* (0.2-1.3) mg/dL AST 282 H (14-36) U/L ALT 120 H (4-34) U/L Alkaline Phosphatase 364 H (38-126) U/L Total Protein 6.4 (6.3-8.2) g/dL Albumin 2.9 L (3.5-5.0) g/dL Lipase 209 (23-300) U/L Urine Color Urine Appearance (Clear) Urine RBC (0-5) /hpf Urine WBC (0-5) /hpf Ur Squamous Epith Cells (0-4) /hpf Urine Bacteria (None) /hpf Urine Mucus (None) /hpf 01/25/21 Range/Units 19:44 WBC (3.8-10.6) k/uL RBC (3.80-5.40) m/uL Hgb (11.4-16.0) gm/dL Hct (34.0-46.0) % MCV (80.0-100.0) fL MCH (25.0-35.0) pg MCHC (31.0-37.0) g/dL RDW (11.5-15.5) % Plt Count (150-450) k/uL MPV Neutrophils % % Lymphocytes % % Monocytes % % Eosinophils % % Basophils % % Neutrophils # (1.3-7.7) k/uL Lymphocytes # (1.0-4.8) k/uL Monocytes # (0-1.0) k/uL Eosinophils # (0-0.7) k/uL Basophils # (0-0.2) k/uL Macrocytosis PT (9.0-12.0) sec INR (<1.2) APTT (22.0-30.0) sec Sodium (137-145) mmol/L Potassium (3.5-5.1) mmol/L Chloride (98-107) mmol/L Carbon Dioxide (22-30) mmol/L Anion Gap mmol/L BUN (7-17) mg/dL Creatinine (0.52-1.04) mg/dL Est GFR (CKD-EPI)AfAm (>60 ml/min/1.73 sqM) Est GFR (CKD-EPI)NonAf (>60 ml/min/1.73 sqM) Glucose (74-99) mg/dL Calcium (8.4-10.2) mg/dL Magnesium (1.6-2.3) mg/dL Total Bilirubin (0.2-1.3) mg/dL AST (14-36) U/L ALT (4-34) U/L Alkaline Phosphatase (38-126) U/L Total Protein (6.3-8.2) g/dL Albumin (3.5-5.0) g/dL Lipase (23-300) U/L Urine Color Jewell Urine Appearance Slightly Cloudy H (Clear) Urine RBC >182 H (0-5) /hpf Urine WBC 35 H (0-5) /hpf Ur Squamous Epith Cells 3 (0-4) /hpf Urine Bacteria Many H (None) /hpf Urine Mucus Occasional H (None) /hpf Disposition Clinical Impression: Liver masses, Hyperbilirubinemia, Transaminitis Disposition: ADMITTED IP TO THIS HOSP Is patient prescribed a controlled substance at d/c from ED?: No Referrals: Johnny Mitchell MD [Primary Care Provider] - 1-2 days Time of Disposition: 21:30
[2021-01-25 20:08] LABS: Basophils # (A) 0.1 k/uL (0-0.2); Basophils % (A) 1 %; Eosinophils # (A) 0.1 k/uL (0-0.7); Eosinophils % (A) 1 %; HGB 14.5 gm/dL (11.4-16.0); Lymphocytes % (A) 9 %; MCH 32.1 pg (25.0-35.0); MCHC 32.1 g/dL (31.0-37.0); MCV 99.9 fL (80.0-100.0); Macrocytosis Slight; Mean Platelet Volume 7.6; Monocytes # (A) 0.6 k/uL (0-1.0); Monocytes % (A) 6 %; Neutrophils # (A) 8.5 k/uL (1.3-7.7); Neutrophils % (A) 82 %; Platelet Count 502 k/uL (150-450); RBC 4.51 m/uL (3.80-5.40); RDW 15.3 % (11.5-15.5); WBC 10.5 k/uL (3.8-10.6)
[2021-01-25 20:13] LABS: Bacteria,Urine Many /hpf; Mucus,Urine Occasional /hpf; RBC,Urine >182 /hpf (0-5); Squamous Epithelial Cell,Urine 3 /hpf (0-4); WBC,Urine 35 /hpf (0-5)
[2021-01-25 20:14] LABS: Appearance,Urine Slightly Cloudy (Clear); Color,Urine Orange
[2021-01-25 20:16] LABS: ALT 120 U/L (4-34); AST 282 U/L (14-36); African American GFR (CKD) >90 (>60 ml/min/1.73 sqM); Albumin 2.9 g/dL (3.5-5.0); Alkaline Phosphatase 364 U/L (38-126); Anion Gap 10 mmol/L; Blood Urea Nitrogen 14 mg/dL (7-17); Calcium 8.9 mg/dL (8.4-10.2); Carbon Dioxide 18 mmol/L (22-30); Chloride 102 mmol/L (98-107); Glucose 156 mg/dL (74-99); Lipase 209 U/L (23-300); Non-African American GFR(CKD) >90 (>60 ml/min/1.73 sqM); Sodium 130 mmol/L (137-145); Total Protein 6.4 g/dL (6.3-8.2)
[2021-01-25 20:29] LABS: INR 1.2 (<1.2); Partial Thromboplastin Time 30.4 sec (22.0-30.0); Prothrombin Time 12.2 sec (9.0-12.0)
[2021-01-25 20:33] LABS: Total Bilirubin 15.8 mg/dL (0.2-1.3)
--- NOTE | 2021-01-25 21:03 | US ---
EXAMINATION TYPE: US gallbladder DATE OF EXAM: 01/25/2021 COMPARISON: US 10/05/2020, CT 10/04/2020 CLINICAL HISTORY: jaundice. EXAM MEASUREMENTS: Liver Length: 34.2 cm Gallbladder Wall: 0.6 cm CBD: Unable to visualize Right Kidney: 9.6 x 3.6 x 4.8 cm Pancreas: Obscured by bowel gas Liver: Enlarged at 34.2 cm. Innumerable masses visualized throughout Gallbladder: Wall appears thickened, however this is hard to visualize due to multiple surrounding l iver masses Evidence for sonographic Avery's sign: No CBD: Not visualized Right Kidney: No hydronephrosis or masses seen IMPRESSION: Liver is markedly enlarged with multiple masses. No dilated ducts. No evidence of gallstones.
[2021-01-25] MEDS ORDERED: ONDANSETRON 4 MG/2 ML VIAL IVP PRN (21:31)
[2021-01-25] MEDS ORDERED: HYDROmorphone 0.5 MG/0.5 ML SYRINGE IVP PRN (21:31)
[2021-01-25] MEDS ORDERED: NALOXONE 0.4 MG/ML 1 ML VIAL IV PRN (21:31)
[2021-01-25] MEDS ORDERED: MORPHINE SULFATE 4 MG/ML SYRINGE IVP STA (22:16)
[2021-01-25 22:37] LABS: Glucose,Whole Blood 135 mg/dL (75-99)
[2021-01-25] MEDS ORDERED: DEXAMETHASONE SOD PHOSPHATE 10 MG/ML 1 ML VIAL IM STA (22:57)
[2021-01-25] MEDS ORDERED: ACETAMINOPHEN SUPPOSITORY 120 MG SUPP RECTAL STA (22:57)
[2021-01-26 00:35] LABS: Glucose,Whole Blood 192 mg/dL (75-99)
[2021-01-26] MEDS ORDERED: HYDROcodone/APAP 5-325MG 1 EACH TAB PO PRN (00:54)
[2021-01-26] MEDS: SODIUM CHLORIDE 0.9% 1,000 ML IV SCH ×3 (01:25→23:47)
[2021-01-26] MEDS: LEVOTHYROXINE 75 MCG TAB PO SCH (06:12)
[2021-01-26 07:08] LABS: Glucose,Whole Blood 119 mg/dL (75-99)
[2021-01-26] MEDS: INSULIN ASPART (NovoLOG) 100 UNIT/ML VIAL SQ SCH ×4 (07:52→21:57)
[2021-01-26] MEDS: VENLAFAXINE HCL ER 37.5 MG CAP PO SCH ×2 (08:12→23:47)
[2021-01-26] MEDS: metFORMIN 500 MG TAB PO SCH ×2 (08:12→23:47)
[2021-01-26] MEDS: POTASSIUM CHLORIDE ER 20 MEQ TAB.ER PO SCH ×2 (08:12→23:47)
[2021-01-26] MEDS: IOPAMIDOL CONTRAST (ORAL USE) VIAL PO PRN ×2 (10:22→11:16)
[2021-01-26 11:00] LABS: Bilirubin,Unconjugated 1.3 mg/dL (0.0-1.1)
[2021-01-26 11:09] LABS: Total Bilirubin 15.3 mg/dL (0.2-1.3)
[2021-01-26 11:49] LABS: Glucose,Whole Blood 157 mg/dL (75-99)
--- NOTE | 2021-01-26 13:00 | CT ---
"EXAMINATION TYPE: CT abdomen pelvis w con DATE OF EXAM: 01/26/2021 COMPARISON: 10/04/2020 HISTORY: Progressive hepatomegaly, melanoma CT DLP: 1689.80 mGycm CONTRAST: CT scan of the abdomen and pelvis is performed with Oral Contrast and with IV Contrast, patient injec javier with 100 ml mL of Isovue 300. FINDINGS: LUNG BASES-: 4 mm pulmonary nodule left lower lobe is difficult to exclude image #1. Additional small nodules seen bilaterally measuring up to 4 mm. I suspect metastatic disease to the lungs. LIVER/GB: Massive progressive hepatomegaly. Innumerable underlying hepatic lesions compatible with me tastatic disease. PANCREAS: No inflammation. No distinct mass. SPLEEN: No splenic enlargement. No lesion seen. ADRENALS: No nodule. No thickening. KIDNEYS/BLADDER: No hydronephrosis. No nephrolithiasis. No distinct renal mass. There is pneumatos is of the urinary bladder wall which is nonspecific and could be related to recent catheterization if there is such a history. Emphysematous cystitis, fistula posttraumatic etiology should also be consi dered. BOWEL: Normal appendix. Normal bowel caliber. No inflammation. GENITAL ORGANS: There is enlargement of the uterus with thickening of the endometrium. Underlying ma ss is difficult to exclude. No ovarian masses seen. Small amount of free fluid within the cul-de-sac. LYMPH NODES: No greater than 1cm abdominal or pelvic lymph nodes are appreciated. AORTA: No significant abnormality. OSSEOUS STRUCTURES: Destructive metastatic lesion of the right hemisacrum measures 4.5 cm. Right osse ous pubis lesion noted. New compression fracture involving L1 with underlying lesion. Lesion involvin g the superior endplate of L3 is difficult to exclude. OTHER: No significant additional abnormality is seen. IMPRESSION: 1. Massive progressive the hepatomegaly with innumerable metastatic lesions throughout all segments o f the liver. 2. Pneumatosis of the urinary bladder wall with differential diagnostic possibilities discussed above . 3. Metastatic disease to the lung bases and osseous structures as discussed above. A [place] level critical message alert has been initiated for Johnny Mitchell MD via the [employer] 36 0 | Critical Results System on 01/26/2021 12:58 PM. This message alert has been sent to Johnny Mitchell MD via the preferences provided by the clinician for the receipt of Radiology Critical Findings. Nj ssage ID [id number]."
--- NOTE | 2021-01-26 15:08 | P.CONS ---
History of Present Illness - Reason for Consult Consult date: 01/26/21 malignent melanoma Requesting physician: Eric Schaefer - Chief Complaint jaundice - History of Present Illness Mrs. Cameron is a very pleasant 55-year-old female patient seen 1st in consult 10/06/20, came to the hospital with complaints of jaundice and persis tent lower extremity swelling. Swelling has been on and off for about 3 weeks but, become persistent and more severe, noted increased fullness in the abdomen over the last 1-2 weeks, she had a 40 pound weight loss, unintentional, since December 2019, she was diagnosed with type 2 diabetes mellitus just a few weeks before admit. She had never had a mammogram, colonoscopy or EGD. No history of hepatitis, EtOH, lifetime nonsmoker. On admission LFTs are elevated, CT AP without contrast revealed nodular hepatic contour, vague hypodensities scattered throughout the liver, possible multiple masses throughout the right and left lobes, liver was enlarged 30.4 cm, perihepatic ascites, generalized anasarca, spleen 14.5 cm, bulky uterus, no pelvic lymphadenopathy. US of the abdomen 10/05/20 confirmed the enlarged liver, multiple lesions free fluid adjacent to the liver. Doppler of the BLE negative for thrombosis. Chest x-ray shows some possible right upper lobe atelectasis. She had a colonoscopy with Dr. Ahmadi 10/10/20, a large rectal polyp was snared and removed positive for malignant melanoma, the polyp base was positive for tumor and lymphovascular invasion. CT-guided liver biopsy 10/07/20 showed fragments of necrotic neoplasm suspicious for metastatic malignancy, insufficient for definitive characterization. She had a transvaginal ultrasound showing marked myometrial heterogeneity with heterogenous acoustic shadowing limiting the visualization. Endometrial stripe not well visualized. Patient was unable to have an MRI of the liver due to the distention of her abdomen. She had a CT of the chest with contrast with impression reading no suspicious mass or adenopathy in the thorax. CA 125 was 218, CA-19-9 was 39.9, AFP was less than 2.5. Iron 45, TIBC 175, bilirubin 2.5, AST 86, ALT 60 and alkaline phosphatase 203. [place] to most likely have a rectal melanoma, with metastasis to the liver. MRI of the brain was negative. A PET scan was ordered, but denied by her insurance. She had a full colonoscopy on 10/28/20 which showed no new lesions. She was also seen by Gynecology, and case discussed with them to schedule her for an endometrial biopsy. She did subsequently have the procedure on 11/01/20, with biopsy benign. She was subsequently found to be negative for the BRAF mutation. She started Opdivo and Yervoy on 11/17/20. After C 1 she developed marked increase in liver enzymes. Thyroid studies were also low. Thus treatment was held and the pt treated with steroid taper for possible auto immune hepatitis. She was also started on Synthroid. LFTs did not recover so, she was referred to Dr. Mays, appt had to be rescheduled as she did not have transportation. She slept way more then usual last Sat but, sleep patterns normal now, she denies confusion, fogginess, the jaundice increased the last 3 days, abd distension and bloating she notes is increased. Weakness persistent at least the last 2 days. Denies fever, chills, N,V, chest pain, palpitations, constipation or diarrhea. She denies pain Review of Systems 14 point ROS is neg except as stated in HPI Past Medical History Past Medical History: Cancer, Diabetes Mellitus, Liver Disease Additional Past Medical History / Comment(s): colon polyp indicated cancer. swelling feet and lower legs History of Any Multi-Drug Resistant Organisms: None Reported Past Surgical History: No Surgical Hx Reported, Orthopedic Surgery Additional Past Surgical History / Comment(s): colonoscopy. lt wrist surgery age 5 Past Anesthesia/Blood Transfusion Reactions: No Reported Reaction Past Psychological History: Anxiety Smoking Status: Never smoker Past Alcohol Use History: None Reported Past Drug Use History: None Reported Medications and Allergies Home Medications Medication Instructions Recorded Confirmed Type Furosemide [Lasix] 40 mg PO BID #60 tablet 10/02/20 01/25/21 Rx Potassium Chloride ER [K-Dur 20] 20 meq PO BID #60 tab 10/02/20 01/25/21 Rx Insulin Glargine,Hum.rec.anlog 20 unit SQ HS 10/26/20 01/25/21 History [Lantus Solostar Pen] HYDROcodone/APAP 5-325MG [Caspian 1 tab PO TID PRN 01/25/21 01/25/21 History 5-325] Levothyroxine Sodium [Levoxyl] 75 mcg PO DAILY 01/25/21 01/25/21 History Venlafaxine HCl [Effexor XR] 37.5 mg PO BID 01/25/21 01/25/21 History metFORMIN HCL [Glucophage] 1,000 mg PO BID 01/25/21 01/25/21 History Allergies Allergy/AdvReac Type Severity Reaction Status Date / Time No Known Allergies Allergy Verified 01/25/21 21:54 Physical Exam Vitals: Vital Signs Temp Pulse Pulse Resp BP BP Pulse Ox 01/26/21 05:18 97.8 F 81 18 125/80 95 01/26/21 00:28 98.4 F 74 16 115/75 96 01/25/21 22:07 86 18 117/73 99 01/25/21 16:38 98.4 F 92 20 127/77 93 L Intake and Output 01/25/21 01/26/21 01/26/21 22:59 06:59 14:59 Other: Voiding Method Toilet Weight 85.275 kg - Constitutional General appearance: cooperative, no acute distress, obese - EENT Eyes: EOMI, scleral icterus ENT: hearing grossly normal, normal oropharynx - Neck Neck: no lymphadenopathy - Respiratory Respiratory: bilateral: CTA - Cardiovascular Rhythm: regular Heart sounds: normal: S1, S2 Abnormal Heart Sounds: no systolic murmur, no diastolic murmur, no rub, no S3 Gallop, no S4 Gallop, no click, no other leg Peripheral Edema: bilateral: Trace - Gastrointestinal General gastrointestinal: no absent bowel sounds, no decreased bowel sounds, distended, hepatomegaly (into RLQ, increased ), no hyperactive bowel sounds, normal bowel sounds, no organomegaly, no rigid, no scaphoid, soft, no splenomegaly, no tenderness, no umbilical hernia, no ventral hernia - Integumentary Integumentary: jaundiced - Neurologic Neurologic: CNII-XII intact - Musculoskeletal Musculoskeletal: generalized weakness, strength equal bilaterally - Psychiatric Psychiatric: A&O x's 3, appropriate affect, intact judgment & insight Results CBC & Chem 7: 01/25/21 19:44 01/25/21 19:44 Labs: Abnormal Lab Results - Last 24 Hours (Table) 01/25/21 01/25/21 01/25/21 Range/Units 19:44 19:44 19:44 Plt Count 502 H (150-450) k/uL Neutrophils # 8.5 H (1.3-7.7) k/uL PT 12.2 H (9.0-12.0) sec INR 1.2 H (<1.2) APTT 30.4 H (22.0-30.0) sec Sodium 130 L (137-145) mmol/L Carbon Dioxide 18 L (22-30) mmol/L Glucose 156 H (74-99) mg/dL POC Glucose (mg/dL) (75-99) mg/dL Total Bilirubin 15.8 H* (0.2-1.3) mg/dL AST 282 H (14-36) U/L ALT 120 H (4-34) U/L Alkaline Phosphatase 364 H (38-126) U/L Albumin 2.9 L (3.5-5.0) g/dL Urine Appearance (Clear) Urine RBC (0-5) /hpf Urine WBC (0-5) /hpf Urine Bacteria (None) /hpf Urine Mucus (None) /hpf 01/25/21 01/25/21 01/26/21 Range/Units 19:44 22:36 00:30 Plt Count (150-450) k/uL Neutrophils # (1.3-7.7) k/uL PT (9.0-12.0) sec INR (<1.2) APTT (22.0-30.0) sec Sodium (137-145) mmol/L Carbon Dioxide (22-30) mmol/L Glucose (74-99) mg/dL POC Glucose (mg/dL) 135 H 192 H (75-99) mg/dL Total Bilirubin (0.2-1.3) mg/dL AST (14-36) U/L ALT (4-34) U/L Alkaline Phosphatase (38-126) U/L Albumin (3.5-5.0) g/dL Urine Appearance Slightly Cloudy H (Clear) Urine RBC >182 H (0-5) /hpf Urine WBC 35 H (0-5) /hpf Urine Bacteria Many H (None) /hpf Urine Mucus Occasional H (None) /hpf 01/26/21 Range/Units 07:07 Plt Count (150-450) k/uL Neutrophils # (1.3-7.7) k/uL PT (9.0-12.0) sec INR (<1.2) APTT (22.0-30.0) sec Sodium (137-145) mmol/L Carbon Dioxide (22-30) mmol/L Glucose (74-99) mg/dL POC Glucose (mg/dL) 119 H (75-99) mg/dL Total Bilirubin (0.2-1.3) mg/dL AST (14-36) U/L ALT (4-34) U/L Alkaline Phosphatase (38-126) U/L Albumin (3.5-5.0) g/dL Urine Appearance (Clear) Urine RBC (0-5) /hpf Urine WBC (0-5) /hpf Urine Bacteria (None) /hpf Urine Mucus (None) /hpf Microbiology - Last 24 Hours (Table) 01/25/21 19:44 Urine Culture - Preliminary Urine,Voided Assessment and Plan (1) Melanoma Narrative/Plan: Diagnosed October 2020. She had 1 cycle of immunotherpay - ipilimumab/nivolumab CTLA-4/PD-1 therapy 11/17/20. 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 She has been on taper since. Was referred to Dr. Mays for evaluation-LFT elevation AI r/t SE or 2/2 to treatment of disease, in which case, treatment could be resumed. Unfortunately, she did not have a ride to this appt and rescheduled it for next week. With pt having so little treatment concern for progressive disease. CT AP ordered. Current Visit: Yes Status: Acute Priority: High Code(s): C43.9 - MALIGNANT MELANOMA OF SKIN, UNSPECIFIED SNOMED Code(s): 428895465 (2) Hyperbilirubinemia Narrative/Plan: Significantly increased when compared to presentation. Bilirubin fractions ordered. Pt is surprisingly alert and oriented considering bilirubin. Ammonia level is normal. Pending CT AP Current Visit: Yes Status: Acute Priority: High Code(s): E80.6 - OTHER DISORDERS OF BILIRUBIN METABOLISM SNOMED Code(s): 82461474 Plan: Doctor attests: I performed a history and physical examination of this patient, developed imp ression and plan of care, discussed with dictator. I agree with dictators note, documented as a scribe.
[2021-01-26 17:21] LABS: Glucose,Whole Blood 135 mg/dL (75-99)
[2021-01-26 20:37] LABS: Glucose,Whole Blood 148 mg/dL (75-99)
[2021-01-26] MEDS: INSULIN DETEMIR (LEVEMIR) 100 UNIT/ML SYR SQ SCH (21:57)
--- NOTE | 2021-01-27 00:58 | HP ---
HISTORY AND PHYSICAL HISTORY OF PRESENT ILLNESS: A 55-year-old white female who came to the hospital with persistent jaundice and severe dehydration and worsening yellowing of her skin. 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 She has had these multiple liver metastases seen on ultrasound and CT scan. She had some immunotherapy for treatment of her cancers. She was thought to have autoimmune hepatitis at some time in the past due to worsening abdominal pain, bloating, dehydration and inability to get out of bed. She was admitted to the hospital. REVIEW OF SYMPTOMS: 14-point review of system, H and P as mentioned above. She had recent MRI of the brain that was negative. 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 She was started Opdivo and for rectal melanoma, metastases to the liver. Now, she has progressive jaundice as well as diabetes mellitus and severe weakness. MEDICATIONS: Home medicines: Lasix 40 b.i.d., K-Dur 20 b.i.d. Lantus 20 units daily for diabetes mellitus, levothyroxine 75 mcg daily, Effexor XR 37.5 b.i.d., metformin 1000 b.i.d., Donner 5 mg 325 t.i.d. ALLERGIES: Negative. PHYSICAL EXAMINATION: Temperature is 97 to 98, pulse 80s to 90s, respiratory 18-21, blood pressure 117 to 127 over 70s, O2 93 to 95%. CARDIOVASCULAR S1-S2. LUNGS clear. GI soft. Tenderness to palpation, diffuse abdomen, possible fluid wave, hepatomegaly of significant nature. INTEGUMENT: Jaundice, and yellowing of the skin. Dry skin turgor, severe yellowing of the skin diffuse and sclerae. MUSCULOSKELETAL: Range of motion full x4 but weak. HEMATOLOGIC: She has 2 to 3+ pedal edema bilaterally. ASSESSMENT: 1. Metastatic melanoma with worsening liver failure and jaundice. 2. Dehydration. 3. Generalized weakness. 4. Diabetes mellitus. 5. Hypothyroidism. 6. Diastolic heart failure. 7. Hyponatremia. Prognosis extremely guarded. Rehydrate. Follow bilirubins. Possible get Radiation Oncology involved. Possible radiation to her liver. PROGNOSIS: Extremely guarded. MMODL / IJN: [id number] /
[2021-01-27] MEDS ORDERED: DEXTROSE 50% SYRINGE 50 ML IVP ONE (05:06)
[2021-01-27 05:10] LABS: Glucose,Whole Blood 24 mg/dL (75-99)
[2021-01-27 05:25] LABS: Glucose,Whole Blood 101 mg/dL (75-99)
[2021-01-27] MEDS ORDERED: DEXTROSE 50% SYRINGE 50 ML IVP STA ×2 (05:34→07:02)
[2021-01-27 06:40] LABS: Basophils % (A) 0 %; Eosinophils % (A) 0 %; HCT 40.6 % (34.0-46.0); Lymphocytes # (A) 0.8 k/uL (1.0-4.8); Lymphocytes % (A) 7 %; MCH 32.1 pg (25.0-35.0); MCV 100.2 fL (80.0-100.0); Macrocytosis Slight; Mean Platelet Volume 7.6; Monocytes # (A) 0.7 k/uL (0-1.0); Monocytes % (A) 7 %; Neutrophils # (A) 8.7 k/uL (1.3-7.7); Neutrophils % (A) 84 %; Platelet Count 377 k/uL (150-450); RBC 4.06 m/uL (3.80-5.40); RDW 15.1 % (11.5-15.5); WBC 10.4 k/uL (3.8-10.6)
[2021-01-27 06:50] LABS: Glucose,Whole Blood 43 mg/dL (75-99)
[2021-01-27 06:55] LABS: ALT 108 U/L (4-34); AST 274 U/L (14-36); African American GFR (CKD) >90 (>60 ml/min/1.73 sqM); Albumin 2.5 g/dL (3.5-5.0); Albumin/Globulin Ratio 0.8; Alkaline Phosphatase 289 U/L (38-126); Anion Gap 9 mmol/L; Blood Urea Nitrogen 20 mg/dL (7-17); Calcium 8.6 mg/dL (8.4-10.2); Carbon Dioxide 20 mmol/L (22-30); Chloride 102 mmol/L (98-107); Globulin 3.2 g/dL; Non-African American GFR(CKD) 89 (>60 ml/min/1.73 sqM); Potassium 3.3 mmol/L (3.5-5.1); Sodium 131 mmol/L (137-145); Total Protein 5.7 g/dL (6.3-8.2)
[2021-01-27 07:01] LABS: Glucose 47 mg/dL (74-99)
[2021-01-27 07:02] LABS: Total Bilirubin 16.4 mg/dL (0.2-1.3)
[2021-01-27 07:15] LABS: Glucose,Whole Blood 134 mg/dL (75-99)
[2021-01-27 07:51] LABS: Glucose,Whole Blood 125 mg/dL (75-99)
[2021-01-27 08:37] LABS: Glucose,Whole Blood 86 mg/dL (75-99)
[2021-01-27] MEDS: DEXTROSE 5% IN WATER 1,000 ML IV SCH ×2 (08:49→20:52)
[2021-01-27 09:39] LABS: Glucose,Whole Blood 75 mg/dL (75-99)
[2021-01-27] MEDS: INSULIN ASPART (NovoLOG) 100 UNIT/ML VIAL SQ SCH ×3 (10:11→20:39)
[2021-01-27] MEDS: LEVOTHYROXINE 75 MCG TAB PO SCH (10:11)
[2021-01-27] MEDS: metFORMIN 500 MG TAB PO SCH ×2 (10:12→20:39)
[2021-01-27] MEDS: POTASSIUM CHLORIDE ER 20 MEQ TAB.ER PO SCH ×2 (10:13→20:50)
[2021-01-27] MEDS: VENLAFAXINE HCL ER 37.5 MG CAP PO SCH ×2 (10:14→20:50)
[2021-01-27 10:36] LABS: Glucose,Whole Blood 99 mg/dL (75-99)
[2021-01-27 11:37] LABS: Glucose,Whole Blood 86 mg/dL (75-99)
[2021-01-27 12:42] LABS: Glucose,Whole Blood 79 mg/dL (75-99)
[2021-01-27 13:29] LABS: Glucose,Whole Blood 77 mg/dL (75-99)
[2021-01-27 14:31] LABS: Glucose,Whole Blood 107 mg/dL (75-99)
[2021-01-27 15:54] LABS: Bilirubin, Conjugated 8.2 mg/dL (0.0-0.3); Bilirubin,Unconjugated 1.5 mg/dL (0.0-1.1)
[2021-01-27 15:57] LABS: Total Bilirubin 16.4 mg/dL (0.2-1.3)
[2021-01-27 16:35] LABS: Glucose,Whole Blood 135 mg/dL (75-99)
--- NOTE | 2021-01-27 16:35 | P.PN ---
Subjective Progress Note Date: 01/27/21 Principal diagnosis: increased liver masses, Melanoma Unfortunately CT scan reveals significant progression through liver. With her initial complications post treatment one she has not been able to have more then one treatment. We have seen and assessed Li today, we have also thoroughly discussed her case with Dr. Logan out of [facility]. She was made an appointment to see Dr. Logan although she was unable to make this due to transportation issues. At this time the unfortunate situation is that her rapidly progressive cancer is likely faster than treatment at this time. She was given the options and the recommendations. The recommendation was for comfort c are as it is unlikely treatment with chemotherapy will help to provide more quantity or quality of life at this time. Although this is the unfortunate situation she is young and has not had a chance to really undergo treatment of her melanoma. Therefore the option of chemotherapy was given to her as well, with the clear understanding that response to treatment is low and unlikely. She has asked to discuss further with her family prior to making a decision. Given the time constraints of this situation she was asked that if she would like treatment to let us know by 4pm today therefore to be able to initiate orders and start treatment before weekend delays. I have spoken with Nurse Liza, who has spoken with patient. The patient and family are trying to look into other options and are not ready to accept this situation and agree to comfort measures. The recommendations from [facility] were shared with her. Per nursing her glucose levels are not stable, they are persistently low requiring D5 amps and D5 IV hydration. Her situation is critical. Objective - Vital Signs Vital signs: Vital Signs Temp 97.8 F 01/27/21 07:30 Pulse 58 L 01/27/21 07:30 Resp 16 01/27/21 07:30 BP 115/66 01/27/21 07:30 Pulse Ox 100 01/27/21 07:30 Intake & Output 01/26/21 01/27/21 01/27/21 18:59 06:59 18:59 Other: Voiding Method Toilet Toilet Toilet # Voids 3 3 - Constitutional General appearance: Present: cooperative, no acute distress - EENT Eyes: Present: EOMI ENT: Present: NA/AT, normal oropharynx - Respiratory Respiratory: bilateral: diminished - Cardiovascular Rhythm: regular - Gastrointestinal General gastrointestinal: Present: hepatomegaly, tenderness - Integumentary Integumentary: Present: jaundiced, pale - Neurologic Neurologic Comment(s): non focal - Musculoskeletal Musculoskeletal: Present: generalized weakness - Psychiatric Psychiatric Comment(s): lethargic Psychiatric: Present: A&O x's 3 - Labs CBC & Chem 7: 01/27/21 06:07 01/27/21 06:07 Labs: Abnormal Lab Results - Last 24 Hours (Table) 01/26/21 01/26/21 01/27/21 Range/Units 17:20 20:36 05:07 MCV (80.0-100.0) fL Neutrophils # (1.3-7.7) k/uL Lymphocytes # (1.0-4.8) k/uL Sodium (137-145) mmol/L Potassium (3.5-5.1) mmol/L Carbon Dioxide (22-30) mmol/L BUN (7-17) mg/dL Glucose (74-99) mg/dL POC Glucose (mg/dL) 135 H 148 H 24 L (75-99) mg/dL Total Bilirubin (0.2-1.3) mg/dL AST (14-36) U/L ALT (4-34) U/L Alkaline Phosphatase (38-126) U/L Total Protein (6.3-8.2) g/dL Albumin (3.5-5.0) g/dL 01/27/21 01/27/21 01/27/21 Range/Units 05:23 06:07 06:07 MCV 100.2 H (80.0-100.0) fL Neutrophils # 8.7 H (1.3-7.7) k/uL Lymphocytes # 0.8 L (1.0-4.8) k/uL Sodium 131 L (137-145) mmol/L Potassium 3.3 L (3.5-5.1) mmol/L Carbon Dioxide 20 L (22-30) mmol/L BUN 20 H (7-17) mg/dL Glucose 47 L* (74-99) mg/dL POC Glucose (mg/dL) 101 H (75-99) mg/dL Total Bilirubin 16.4 H* (0.2-1.3) mg/dL AST 274 H (14-36) U/L ALT 108 H (4-34) U/L Alkaline Phosphatase 289 H (38-126) U/L Total Protein 5.7 L (6.3-8.2) g/dL Albumin 2.5 L (3.5-5.0) g/dL 01/27/21 01/27/21 01/27/21 Range/Units 06:47 07:14 07:49 MCV (80.0-100.0) fL Neutrophils # (1.3-7.7) k/uL Lymphocytes # (1.0-4.8) k/uL Sodium (137-145) mmol/L Potassium (3.5-5.1) mmol/L Carbon Dioxide (22-30) mmol/L BUN (7-17) mg/dL Glucose (74-99) mg/dL POC Glucose (mg/dL) 43 L 134 H 125 H (75-99) mg/dL Total Bilirubin (0.2-1.3) mg/dL AST (14-36) U/L ALT (4-34) U/L Alkaline Phosphatase (38-126) U/L Total Protein (6.3-8.2) g/dL Albumin (3.5-5.0) g/dL Microbiology - Last 24 Hours (Table) 01/25/21 19:44 Urine Culture - Preliminary Urine,Voided Gram Neg Bacilli Assessment and Plan (1) Hyperbilirubinemia Current Visit: Yes Status: Acute Priority: High Code(s): E80.6 - OTHER DISORDERS OF BILIRUBIN METABOLISM SNOMED Code(s): 10571566 (2) Liver masses Current Visit: Yes Status: Acute Code(s): R16.0 - HEPATOMEGALY, NOT ELSEWHERE CLASSIFIED SNOMED Code(s): 558621922 (3) Melanoma Current Visit: Yes Status: Acute Priority: High Code(s): C43.9 - MALIGNANT MELANOMA OF SKIN, UNSPECIFIED SNOMED Code(s): 626598112 Plan: CT scan with significant progression of disease noted. Detailed Discussion with Dr. Granados from [facility], limited options. Patient is not ready for committing to hospice, palliative or comfort care at this time. However she is not wanting to move forward with chemotherapy over the weekend either and her family is actively searching for a third opinion hospital network to hopefully send her to. Greater than 28 minutes with patient other team members and review of diagnostics was spent with patient Physician Attest: I have completed the full history and physical and developed the full impression and plan, agree with dictation, dictated as a scribe.
[2021-01-27] MEDS: SODIUM CHLORIDE 0.9% 1,000 ML IV SCH ×3 (17:45→20:40)
[2021-01-27 17:53] LABS: Glucose,Whole Blood 113 mg/dL (75-99)
[2021-01-27 19:01] LABS: Glucose,Whole Blood 109 mg/dL (75-99)
[2021-01-27 19:54] LABS: Glucose,Whole Blood 116 mg/dL (75-99)
[2021-01-27] MEDS: INSULIN DETEMIR (LEVEMIR) 100 UNIT/ML SYR SQ SCH (20:39)
[2021-01-27 22:04] LABS: Glucose,Whole Blood 128 mg/dL (75-99)
[2021-01-28 01:57] LABS: Glucose,Whole Blood 141 mg/dL (75-99)
[2021-01-28 05:07] LABS: Glucose,Whole Blood 132 mg/dL (75-99)
[2021-01-28] MEDS: SODIUM CHLORIDE 0.9% 1,000 ML IV SCH ×2 (05:13→19:08)
[2021-01-28] MEDS: LEVOTHYROXINE 75 MCG TAB PO SCH (05:19)
[2021-01-28 07:06] LABS: Glucose,Whole Blood 151 mg/dL (75-99)
[2021-01-28 07:37] LABS: Basophils % (A) 0 %; Eosinophils # (A) 0.1 k/uL (0-0.7); Eosinophils % (A) 1 %; HCT 39.1 % (34.0-46.0); HGB 12.5 gm/dL (11.4-16.0); Lymphocytes # (A) 0.8 k/uL (1.0-4.8); Lymphocytes % (A) 9 %; MCH 31.8 pg (25.0-35.0); MCV 99.4 fL (80.0-100.0); Macrocytosis Slight; Mean Platelet Volume 7.6; Monocytes # (A) 0.7 k/uL (0-1.0); Monocytes % (A) 8 %; Neutrophils # (A) 7.1 k/uL (1.3-7.7); Neutrophils % (A) 80 %; Platelet Count 364 k/uL (150-450); RBC 3.94 m/uL (3.80-5.40); RDW 15.1 % (11.5-15.5); WBC 8.8 k/uL (3.8-10.6)
[2021-01-28 07:48] LABS: ALT 109 U/L (4-34); AST 279 U/L (14-36); African American GFR (CKD) >90 (>60 ml/min/1.73 sqM); Albumin 2.5 g/dL (3.5-5.0); Albumin/Globulin Ratio 0.8; Alkaline Phosphatase 290 U/L (38-126); Anion Gap 7 mmol/L; Blood Urea Nitrogen 17 mg/dL (7-17); Calcium 8.4 mg/dL (8.4-10.2); Carbon Dioxide 18 mmol/L (22-30); Chloride 102 mmol/L (98-107); Globulin 3.1 g/dL; Glucose 137 mg/dL (74-99); Non-African American GFR(CKD) >90 (>60 ml/min/1.73 sqM); Potassium 4.5 mmol/L (3.5-5.1); Sodium 127 mmol/L (137-145); Total Protein 5.6 g/dL (6.3-8.2)
[2021-01-28 07:55] LABS: Total Bilirubin 15.1 mg/dL (0.2-1.3)
[2021-01-28 11:24] LABS: Glucose,Whole Blood 175 mg/dL (75-99)
[2021-01-28 17:35] LABS: Glucose,Whole Blood 124 mg/dL (75-99)
[2021-01-28] MEDS: INSULIN ASPART (NovoLOG) 100 UNIT/ML VIAL SQ SCH ×3 (19:07→20:55)
[2021-01-28] MEDS: metFORMIN 500 MG TAB PO SCH ×2 (19:08→20:29)
[2021-01-28] MEDS: POTASSIUM CHLORIDE ER 20 MEQ TAB.ER PO SCH ×2 (19:08→20:29)
[2021-01-28] MEDS: VENLAFAXINE HCL ER 37.5 MG CAP PO SCH ×2 (19:08→20:29)
[2021-01-28 20:55] LABS: Glucose,Whole Blood 113 mg/dL (75-99)
[2021-01-28] MEDS: INSULIN DETEMIR (LEVEMIR) 100 UNIT/ML SYR SQ SCH (20:55)
[2021-01-28] MEDS ORDERED: INSULIN ASPART (NovoLOG) 100 UNIT/ML VIAL SQ ONE ×2 (23:59)
[2021-01-28] MEDS ORDERED: metFORMIN 500 MG TAB ONE (23:59)
[2021-01-28] MEDS ORDERED: VENLAFAXINE HCL ER 37.5 MG CAP PO ONE (23:59)
[2021-01-28] MEDS ORDERED: POTASSIUM CHLORIDE ER 20 MEQ TAB.ER PO ONE (23:59)
[2021-01-29] MEDS: DEXTROSE 5% IN WATER 1,000 ML IV SCH ×3 (00:51→08:04)
[2021-01-29] MEDS: SODIUM CHLORIDE 0.9% 1,000 ML IV SCH ×5 (00:51→19:58)
--- NOTE | 2021-01-29 00:53 | PN ---
PROGRESS NOTE 55-year-old white female metastatic malignant melanoma with liver metastases throughout her liver and lungs. Bilirubin is now 15. She has been rehydrated. Her sugars are much better now in the mid 100s without any diabetic medications. We are trying to get her set up for possible transfer down to [place] for third opinion on her cancer and treatment. Continue to increase oral intake as she had some food today, but not much, but she is eating better. Sugars are better. PROGNOSIS: Guarded. MMODL / IJN: [id number] /
[2021-01-29] MEDS: LEVOTHYROXINE 75 MCG TAB PO SCH (04:22)
[2021-01-29 06:05] LABS: Basophils % (A) 0 %; Eosinophils # (A) 0.1 k/uL (0-0.7); Eosinophils % (A) 1 %; HCT 40.3 % (34.0-46.0); Lymphocytes # (A) 0.9 k/uL (1.0-4.8); Lymphocytes % (A) 11 %; MCH 32.4 pg (25.0-35.0); MCHC 32.2 g/dL (31.0-37.0); MCV 100.6 fL (80.0-100.0); Macrocytosis Slight; Monocytes # (A) 0.7 k/uL (0-1.0); Monocytes % (A) 8 %; Neutrophils # (A) 6.3 k/uL (1.3-7.7); Neutrophils % (A) 77 %; Platelet Count 392 k/uL (150-450); WBC 8.2 k/uL (3.8-10.6)
[2021-01-29 07:13] LABS: Glucose,Whole Blood 110 mg/dL (75-99)
[2021-01-29] MEDS: VENLAFAXINE HCL ER 37.5 MG CAP PO SCH ×2 (08:04→20:08)
[2021-01-29] MEDS: metFORMIN 500 MG TAB PO SCH ×2 (08:04→20:08)
[2021-01-29] MEDS: POTASSIUM CHLORIDE ER 20 MEQ TAB.ER PO SCH ×2 (08:04→20:08)
[2021-01-29] MEDS: INSULIN ASPART (NovoLOG) 100 UNIT/ML VIAL SQ SCH ×4 (08:07→20:09)
[2021-01-29 08:56] LABS: ALT 112 U/L (4-34); AST 274 U/L (14-36); African American GFR (CKD) >90 (>60 ml/min/1.73 sqM); Albumin 2.5 g/dL (3.5-5.0); Albumin/Globulin Ratio 0.8; Alkaline Phosphatase 283 U/L (38-126); Anion Gap 8 mmol/L; Blood Urea Nitrogen 14 mg/dL (7-17); Calcium 8.7 mg/dL (8.4-10.2); Carbon Dioxide 15 mmol/L (22-30); Chloride 104 mmol/L (98-107); Globulin 3.2 g/dL; Glucose 99 mg/dL (74-99); Non-African American GFR(CKD) >90 (>60 ml/min/1.73 sqM); Sodium 127 mmol/L (137-145); Total Protein 5.7 g/dL (6.3-8.2)
[2021-01-29 11:55] LABS: Glucose,Whole Blood 108 mg/dL (75-99)
[2021-01-29 17:32] LABS: Glucose,Whole Blood 101 mg/dL (75-99)
[2021-01-29 20:09] LABS: Glucose,Whole Blood 100 mg/dL (75-99)
[2021-01-29] MEDS: INSULIN DETEMIR (LEVEMIR) 100 UNIT/ML SYR SQ SCH ×2 (20:09→21:34)
--- NOTE | 2021-01-29 20:51 | P.PN ---
Progress Note - Text Progress Note Date: 01/29/21 Presenting complaint: Tired Interval history: I'm rounding today for Dr. Johnny Mitchell Patient has rather advanced melanoma and she has been offered hospice. At the present time patient is looking at other options. Being followed by Dr. Dailey from oncology. Today: Laying in bed. Tired. Did not have any breakfast. Patient for lunch. Tired. Denies any pain. Has not been out of bed. Review of systems: Was done for constitutional, cardiovascular, GI, pulmonary. relevant finding as above Active Medications Hydrocodone Bitart/Acetaminophen (Hydrocodone/Apap 5-325mg 1 Each Tab) 1 each PO TID PRN PRN Reason: Pain Hydromorphone HCl (Hydromorphone 0.5 Mg/0.5 Ml Syringe) 0.5 mg IVP Q3HR PRN PRN Reason: Moderate Pain Sodium Chloride (Saline 0.9%) 1,000 mls @ 130 mls/hr IV .[id number] [facility] Last Admin: 01/29/21 19:58 Dose: Not Given Documented by: Dextrose/Water (Dextrose 5%-Water Iv Soln) 1,000 mls @ 75 mls/hr IV .[id number] [facility] Last Admin: 01/29/21 08:04 Dose: 75 mls/hr Documented by: Insulin Aspart (Insulin Aspart (Novolog) 100 Unit/Ml Vial) 0 unit SQ [facility]; Protocol Last Admin: 01/29/21 20:09 Dose: Not Given Documented by: Insulin Detemir (Insulin Detemir (Levemir) 100 Unit/Ml Syr) 20 unit SQ [facility] Last Admin: 01/29/21 20:09 Dose: Not Given Documented by: Levothyroxine Sodium (Levothyroxine 75 Mcg Tab) 75 mcg PO DAILY@0630 [facility] Last Admin: 01/29/21 04:22 Dose: 75 mcg Documented by: Metformin HCl (Metformin 500 Mg Tab) 1,000 mg PO BID [facility] Last Admin: 01/29/21 20:08 Dose: 1,000 mg Documented by: Naloxone HCl (Naloxone 0.4 Mg/Ml 1 Ml Vial) 0.2 mg IV Q2M PRN PRN Reason: Opioid Reversal Ondansetron HCl (Ondansetron 4 Mg/2 Ml Vial) 4 mg IVP Q8HR PRN PRN Reason: Nausea And Vomiting Last Admin: 01/26/21 11:18 Dose: 4 mg Documented by: Potassium Chloride (Potassium Chloride Er 20 Meq Tab.Er) 20 meq PO BID [facility] Last Admin: 01/29/21 20:08 Dose: 20 meq Documented by: Venlafaxine HCl (Venlafaxine Hcl Er 37.5 Mg Cap) 37.5 mg PO BID [facility] Last Admin: 01/29/21 20:08 Dose: 37.5 mg Documented by: On examination: VITAL SIGNS: [97.9, 79, 16, 118/72, 96% room air] GENERAL APPEARANCE: Laying in bed, tired, slightly anxious HEENT: Normal external appearance of nose and ear. Oral cavity normal EYES: Pupils equal. Conjunctiva normal. NECK: JVD not raised. Mass not palpable. RESPIRATORY: Respiratory effort normal. Lungs clear to auscultation. CARDIOVASCULAR: First and second sounds normal. Some edema. ABDOMEN: Distended, abdominal masses, no tenderness, PSYCHIATRY: Alert and oriented x3. Mood and affect anxious INVESTIGATIONS, reviewed in the clinical context: WBC 8.2 hemoglobin 13 platelets 392 sodium 127 potassium 5 creatinine 0.5 to Total bilirubin 15 AST 274 ALT 112 albumin 2.5 Assessment and plan: -Metastatic advanced melanoma causing massive hepatomegaly, with numerous metastatic lesions, metastatic disease of the lung bases and osseous structures. [place] to be unlikely amenable to any treatment. Being followed by Dr. Dailey -Acute on chronic medical debility from underlying malignancy -Hyperbilirubinemia, for metastatic disease -Severe anorexia due to underlying malignancy -Hyponatremia from decreased solid intake Normal saline -Metabolic acidosis addt sodium bicarbonate -Depressive disorder Effexor XL 37.5 mg twice a day -Hypothyroid Levoxyl 75 g a day -Diabetes mellitus type 2, chronically on insulin Levemir 20 units. Follow Accu-Cheks. Stop metformin -Mild protein calorie malnutrition from decreased oral intake Encourage oral intake Prognosis is poor. Patient barely eating. Stop metformin. Cutback dose of Levemir. DC potassium supplement. Check BMP the morning. Prognosis poor.
[2021-01-29] MEDS: SODIUM BICARBONATE TAB 650 MG TAB PO SCH (21:34)
[2021-01-30] MEDS: SODIUM CHLORIDE 0.9% 1,000 ML IV SCH ×4 (01:20→21:30)
[2021-01-30 01:58] LABS: Glucose,Whole Blood 102 mg/dL (75-99)
[2021-01-30] MEDS: LEVOTHYROXINE 75 MCG TAB PO SCH (05:48)
[2021-01-30 07:04] LABS: African American GFR (CKD) >90 (>60 ml/min/1.73 sqM); Anion Gap 9 mmol/L; Blood Urea Nitrogen 15 mg/dL (7-17); Calcium 8.5 mg/dL (8.4-10.2); Carbon Dioxide 16 mmol/L (22-30); Chloride 102 mmol/L (98-107); Glucose 88 mg/dL (74-99); Non-African American GFR(CKD) >90 (>60 ml/min/1.73 sqM); Potassium 5.4 mmol/L (3.5-5.1); Sodium 127 mmol/L (137-145)
[2021-01-30 07:07] LABS: Glucose,Whole Blood 88 mg/dL (75-99)
[2021-01-30] MEDS: INSULIN ASPART (NovoLOG) 100 UNIT/ML VIAL SQ SCH ×4 (08:05→21:21)
[2021-01-30] MEDS: VENLAFAXINE HCL ER 37.5 MG CAP PO SCH ×2 (08:16→21:30)
[2021-01-30] MEDS: SODIUM BICARBONATE TAB 650 MG TAB PO SCH ×3 (08:16→21:30)
[2021-01-30 10:15] LABS: Basophils # (A) 0.1 k/uL (0-0.2); Basophils % (A) 1 %; Eosinophils # (A) 0.1 k/uL (0-0.7); Eosinophils % (A) 1 %; HCT 43.1 % (34.0-46.0); HGB 13.9 gm/dL (11.4-16.0); Lymphocytes # (A) 0.9 k/uL (1.0-4.8); Lymphocytes % (A) 9 %; MCH 32.5 pg (25.0-35.0); MCHC 32.2 g/dL (31.0-37.0); MCV 101.1 fL (80.0-100.0); Macrocytosis Slight; Mean Platelet Volume 7.7; Monocytes # (A) 0.8 k/uL (0-1.0); Monocytes % (A) 8 %; Neutrophils # (A) 7.7 k/uL (1.3-7.7); Neutrophils % (A) 80 %; Platelet Count 506 k/uL (150-450); RBC 4.26 m/uL (3.80-5.40); WBC 9.6 k/uL (3.8-10.6)
[2021-01-30 10:24] LABS: Albumin 2.6 g/dL (3.5-5.0); Albumin/Globulin Ratio 0.8; Bilirubin, Conjugated 9.7 mg/dL (0.0-0.3); Bilirubin,Unconjugated 1.2 mg/dL (0.0-1.1); Globulin 3.2 g/dL; Total Protein 5.8 g/dL (6.3-8.2)
[2021-01-30 10:30] LABS: Total Bilirubin 17.4 mg/dL (0.2-1.3)
[2021-01-30 10:45] LABS: INR 1.2 (<1.2); Partial Thromboplastin Time 33.5 sec (22.0-30.0); Prothrombin Time 12.6 sec (9.0-12.0)
[2021-01-30 12:17] LABS: Glucose,Whole Blood 88 mg/dL (75-99)
--- NOTE | 2021-01-30 15:57 | P.PN ---
Subjective Progress Note Date: 01/30/21 Principal diagnosis: increased liver masses, Melanoma Patient is laying in bed in mod distress, she is still a full cpr. Attempted to call brother Mauricio, patient does not know what she wants to do but they would like to be transferred to [facility] if they agree Objective - Vital Signs Vital signs: Vital Signs Temp 97.8 F 01/30/21 12:03 Pulse 81 01/30/21 12:03 Resp 16 01/30/21 12:03 BP 119/71 01/30/21 12:03 Pulse Ox 98 01/30/21 12:03 Intake & Output 01/29/21 01/30/21 01/30/21 18:59 06:59 18:59 Intake Total 1020 Output Total 5 Balance 1020 -5 Intake: Intake, IV Titration 900 Amount Dextrose 5% in Water 1, 900 000 ml @ 75 mls/hr IV . [id number] [facility] Rx#:[id number] Oral 120 Output: Urine 3 Stool 2 Other: Voiding Method Diaper Diaper # Voids 2 1 # Bowel Movements 2 1 - Exam Jaundice Icteric Sclera Dry mucus membranes Lungs: Diminished and increased effort Heart Tachy Abd: distended Ext + edema - Labs CBC & Chem 7: 01/30/21 09:41 01/30/21 06:19 Labs: Abnormal Lab Results - Last 24 Hours (Table) 01/29/21 01/29/21 01/30/21 Range/Units 17:29 20:08 01:56 MCV (80.0-100.0) fL Plt Count (150-450) k/uL Lymphocytes # (1.0-4.8) k/uL PT (9.0-12.0) sec INR (<1.2) APTT (22.0-30.0) sec Sodium (137-145) mmol/L Potassium (3.5-5.1) mmol/L Carbon Dioxide (22-30) mmol/L POC Glucose (mg/dL) 101 H 100 H 102 H (75-99) mg/dL Total Bilirubin (0.2-1.3) mg/dL Conjugated Bilirubin (0.0-0.3) mg/dL Unconjugated Bilirubin (0.0-1.1) mg/dL AST (14-36) U/L ALT (4-34) U/L Alkaline Phosphatase (38-126) U/L Total Protein (6.3-8.2) g/dL Albumin (3.5-5.0) g/dL 01/30/21 01/30/21 01/30/21 Range/Units 06:19 09:41 09:41 MCV 101.1 H (80.0-100.0) fL Plt Count 506 H (150-450) k/uL Lymphocytes # 0.9 L (1.0-4.8) k/uL PT (9.0-12.0) sec INR (<1.2) APTT (22.0-30.0) sec Sodium 127 L (137-145) mmol/L Potassium 5.4 H (3.5-5.1) mmol/L Carbon Dioxide 16 L (22-30) mmol/L POC Glucose (mg/dL) (75-99) mg/dL Total Bilirubin 17.4 H* (0.2-1.3) mg/dL Conjugated Bilirubin 9.7 H (0.0-0.3) mg/dL Unconjugated Bilirubin 1.2 H (0.0-1.1) mg/dL AST 275 H (14-36) U/L ALT 107 H (4-34) U/L Alkaline Phosphatase 313 H (38-126) U/L Total Protein 5.8 L (6.3-8.2) g/dL Albumin 2.6 L (3.5-5.0) g/dL 01/30/21 Range/Units 09:41 MCV (80.0-100.0) fL Plt Count (150-450) k/uL Lymphocytes # (1.0-4.8) k/uL PT 12.6 H (9.0-12.0) sec INR 1.2 H (<1.2) APTT 33.5 H (22.0-30.0) sec Sodium (137-145) mmol/L Potassium (3.5-5.1) mmol/L Carbon Dioxide (22-30) mmol/L POC Glucose (mg/dL) (75-99) mg/dL Total Bilirubin (0.2-1.3) mg/dL Conjugated Bilirubin (0.0-0.3) mg/dL Unconjugated Bilirubin (0.0-1.1) mg/dL AST (14-36) U/L ALT (4-34) U/L Alkaline Phosphatase (38-126) U/L Total Protein (6.3-8.2) g/dL Albumin (3.5-5.0) g/dL Assessment and Plan (1) Hyperbilirubinemia Current Visit: Yes Status: Acute Priority: High Code(s): E80.6 - OTHER DIS ORDERS OF BILIRUBIN METABOLISM SNOMED Code(s): 89361735 (2) Liver masses Current Visit: Yes Status: Acute Code(s): R16.0 - HEPATOMEGALY, NOT ELSEWHERE CLASSIFIED SNOMED Code(s): 597053560 (3) Melanoma Current Visit: Yes Status: Acute Priority: High Code(s): C43.9 - MALIGNANT MELANOMA OF SKIN, UNSPECIFIED SNOMED Code(s): 317143746 Plan: CT scan with significant progression of disease noted. Detailed Discussion with Dr. Granados from [facility], limited options. Patient is not ready for committing to hospice, palliative or comfort care at this time. However she is not wanting to move forward with chemotherapy over the weekend either and her family is actively searching for a third opinion hospital network to hopefully send her to. Case management consulted for transfer to [facility] when bed available for second opinion related to oncology Long discussion of code status and at this time she would not like to change anything. Physician Attest: I have completed the full history and physical and developed the full impression and plan, agree with dictation, dictated as a scribe.
[2021-01-30 17:06] LABS: Glucose,Whole Blood 98 mg/dL (75-99)
[2021-01-30 20:13] LABS: Glucose,Whole Blood 85 mg/dL (75-99)
[2021-01-30] MEDS: INSULIN DETEMIR (LEVEMIR) 100 UNIT/ML SYR SQ SCH (21:22)
[2021-01-31] MEDS: SODIUM CHLORIDE 0.9% 1,000 ML IV SCH ×2 (04:24→20:55)
[2021-01-31] MEDS: LEVOTHYROXINE 75 MCG TAB PO SCH (05:44)
[2021-01-31 06:31] LABS: Basophils % (A) 0 %; Eosinophils # (A) 0.1 k/uL (0-0.7); Eosinophils % (A) 1 %; HCT 42.1 % (34.0-46.0); HGB 13.6 gm/dL (11.4-16.0); Lymphocytes # (A) 0.9 k/uL (1.0-4.8); Lymphocytes % (A) 10 %; MCH 32.7 pg (25.0-35.0); MCHC 32.4 g/dL (31.0-37.0); Macrocytosis Slight; Mean Platelet Volume 7.6; Monocytes # (A) 0.8 k/uL (0-1.0); Monocytes % (A) 9 %; Neutrophils % (A) 79 %; Platelet Count 479 k/uL (150-450); RBC 4.17 m/uL (3.80-5.40); RDW 14.8 % (11.5-15.5); WBC 8.8 k/uL (3.8-10.6)
[2021-01-31 06:42] LABS: ALT 98 U/L (4-34); AST 275 U/L (14-36); African American GFR (CKD) >90 (>60 ml/min/1.73 sqM); Albumin 2.5 g/dL (3.5-5.0); Albumin/Globulin Ratio 0.8; Alkaline Phosphatase 301 U/L (38-126); Anion Gap 11 mmol/L; Blood Urea Nitrogen 16 mg/dL (7-17); Calcium 8.3 mg/dL (8.4-10.2); Carbon Dioxide 14 mmol/L (22-30); Chloride 103 mmol/L (98-107); Globulin 3.2 g/dL; Glucose 70 mg/dL (74-99); Non-African American GFR(CKD) >90 (>60 ml/min/1.73 sqM); Sodium 128 mmol/L (137-145); Total Protein 5.7 g/dL (6.3-8.2)
[2021-01-31 06:47] LABS: Total Bilirubin 17.7 mg/dL (0.2-1.3)
[2021-01-31 07:24] LABS: Glucose,Whole Blood 79 mg/dL (75-99)
[2021-01-31] MEDS: INSULIN ASPART (NovoLOG) 100 UNIT/ML VIAL SQ SCH ×4 (07:38→20:50)
[2021-01-31] MEDS: VENLAFAXINE HCL ER 37.5 MG CAP PO SCH ×2 (07:46→20:55)
[2021-01-31] MEDS: SODIUM BICARBONATE TAB 650 MG TAB PO SCH ×3 (07:46→20:55)
[2021-01-31 07:53] LABS: INR 1.3 (<1.2); Prothrombin Time 12.9 sec (9.0-12.0)
[2021-01-31 11:21] LABS: Glucose,Whole Blood 88 mg/dL (75-99)
--- NOTE | 2021-01-31 11:35 | PN ---
PROGRESS NOTE This is a 55-year-old white female. She was admitted to the hospital with metastatic cancer, malignant melanoma throughout her liver and lungs. Awaiting transfer to [place] if possible. INR is 1.2. White count is 9.6, hemoglobin 13.9. Sugars are in 80s. Total bilirubin is back up to 17.4. Really high LFTs. Prognosis extremely guarded. Palliative care, maybe hospice will be needed if transfer to [place] is not necessary. She appears to be in severe problems with metastatic cancer with failure of the liver. Prognosis extremely guarded. Continue with IV fluids. Hold diabetic medicine. MMODL / IJN: [id number] /
--- NOTE | 2021-01-31 13:38 | CDI ---
Documentation Clarification Form Date: 01/31/2021 01:36:20 PM From: Elyssa Pal RN, CCDS Admit Date: 01/25/2021 09:37:00 PM Patient Name: Li Cameron Visit Number: [id number] ATTENTION: The Clinical Documentation Specialists (CDI) and [facility] Coding Staff appreciate your assistance in clarifying documentation. Please respond to the clarification below the line at the bottom and electronically sign. The CDI & [facility] Coding staff will review the response and follow-up if needed. Please note: Queries are made part of the Legal Health Record. If you have any questions, please contact the author of this message via ITS. Dr. Johnny Mitchell Your patient has the documented diagnosis of unspecified Diastolic CHF [in the 01/26 H&P Additional information regarding the acuity of CHF is requested. 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 In your professional opinion, can you please clarify the acuity of CHF if known? [ ] Acute Diastolic Heart Failure (preserved EF) [ ] Chronic Diastolic Heart Failure (preserved EF) [ ] Acute on Chronic Diastolic Heart Failure (preserved EF) [ ] Other, please specify [ ] Unable to determine (Template Last Revised: May 2020) MTDD
[2021-01-31 17:04] LABS: Glucose,Whole Blood 82 mg/dL (75-99)
--- NOTE | 2021-01-31 17:48 | P.PN ---
Subjective Progress Note Date: 01/31/21 Principal diagnosis: hepatic failure, metastatic melanoma, rapid disease progression in the liver In f/u today pt remains surprisingly alert and oriented despite hepatic encephalopathy. Objective - Vital Signs Vital signs: Vital Signs Temp 97.9 F 01/31/21 04:22 Pulse 85 01/31/21 08:00 Resp 18 01/31/21 08:00 BP 112/69 01/31/21 04:22 Pulse Ox 96 01/31/21 04:22 Intake & Output 01/30/21 01/31/21 01/31/21 18:59 06:59 18:59 Intake Total 830 1560 Balance 830 1560 Intake: Intake, IV Titration 780 1560 Amount Dextrose 5% in Water 1, 780 000 ml @ 75 mls/hr IV . [id number] [facility] Rx#:[id number] Sodium Chloride 0.9% 1, 1560 000 ml @ 130 mls/hr IV . Q7H42M [facility] Rx#:[id number] Oral 50 0 Other: Voiding Method Diaper Diaper Diaper # Voids 1 2 # Bowel Movements 1 2 - Constitutional General appearance: Present: cooperative, no acute distress, obese - EENT Eyes: Present: EOMI, scleral icterus ENT: Present: hearing grossly normal - Respiratory Respiratory: bilateral: CTA, diminished - Cardiovascular Rhythm: regular Heart sounds: normal: S1, S2 Abnormal Heart Sounds: Absent: systolic murmur, diastolic murmur, rub, S3 Gallop, S4 Gallop, click, other - Peripheral edema leg Peripheral Edema: bilateral: Trace - Gastrointestinal General gastrointestinal: Present: distended, hepatomegaly, normal bowel sounds, soft, tenderness - Integumentary Integumentary: Present: jaundiced - Neurologic Neurologic: Present: CNII-XII intact - Musculoskeletal Musculoskeletal: Present: generalized weakness, strength equal bilaterally - Psychiatric Psychiatric: Present: A&O x's 3, appropriate affect - Labs CBC & Chem 7: 01/31/21 05:58 01/31/21 05:58 Labs: Abnormal Lab Results - Last 24 Hours (Table) 01/30/21 01/30/21 01/31/21 Range/Units 09:41 09:41 05:58 MCV 101.0 H (80.0-100.0) fL Plt Count 479 H (150-450) k/uL Lymphocytes # 0.9 L (1.0-4.8) k/uL PT 12.6 H (9.0-12.0) sec INR 1.2 H (<1.2) APTT 33.5 H (22.0-30.0) sec Sodium (137-145) mmol/L Carbon Dioxide (22-30) mmol/L Glucose (74-99) mg/dL Calcium (8.4-10.2) mg/dL Total Bilirubin 17.4 H* (0.2-1.3) mg/dL Conjugated Bilirubin 9.7 H (0.0-0.3) mg/dL Unconjugated Bilirubin 1.2 H (0.0-1.1) mg/dL AST 275 H (14-36) U/L ALT 107 H (4-34) U/L Alkaline Phosphatase 313 H (38-126) U/L Total Protein 5.8 L (6.3-8.2) g/dL Albumin 2.6 L (3.5-5.0) g/dL 01/31/21 01/31/21 Range/Units 05:58 05:58 MCV (80.0-100.0) fL Plt Count (150-450) k/uL Lymphocytes # (1.0-4.8) k/uL PT 12.9 H (9.0-12.0) sec INR 1.3 H (<1.2) APTT (22.0-30.0) sec Sodium 128 L (137-145) mmol/L Carbon Dioxide 14 L (22-30) mmol/L Glucose 70 L (74-99) mg/dL Calcium 8.3 L (8.4-10.2) mg/dL Total Bilirubin 17.7 H* (0.2-1.3) mg/dL Conjugated Bilirubin (0.0-0.3) mg/dL Unconjugated Bilirubin (0.0-1.1) mg/dL AST 275 H (14-36) U/L ALT 98 H (4-34) U/L Alkaline Phosphatase 301 H (38-126) U/L Total Protein 5.7 L (6.3-8.2) g/dL Albumin 2.5 L (3.5-5.0) g/dL Assessment and Plan (1) Melanoma Narrative/Plan: Diagnosed October 2020. She had 1 cycle of immunotherpay - ipilimumab/nivolumab CTLA-4/PD-1 therapy 11/17/20. 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 She has been on taper since. Was referred to Dr. Mays for evaluation-LFT elevation AI r/t SE or 2/2 to treatment of disease, in which case, treatment could be resumed. Unfortunately, she did not have a ride to this appt and rescheduled it for next week. With pt having so little treatment, concern for progressive disease. CT AP done, disease progression. Pt and family were wanting transfer to [facility]. Unfortunately, they are not accepting admits that are not urgent or for 2nd opinions. Dr. Dailey has message out to Dr. [facility] melanoma clinic to see if he will consider giving an opinion without seeing the pt. Current Visit: Yes Status: Acute Priority: High Code(s): C43.9 - MALIGNANT MELANOMA OF SKIN, UNSPECIFIED SNOMED Code(s): 432490333 (2) Hyperbilirubinemia Narrative/Plan: Significantly increased when compared to presentation. Stable at this time. Bilirubin fractions consistent with post hepatic obstruction. Ammonia level was normal. Pt cont to be surprisingly alert and oriented considering bilirubin. Current Visit: Yes Status: Acute Priority: High Code(s): E80.6 - OTHER DISORDERS OF BILIRUBIN METABOLISM SNOMED Code(s): 08820086 Plan: Doctor attests: I performed a history and physical examination of this patient, developed impression and plan of care, discussed with dictator. I agree with dictators note, documented as a scribe.
[2021-01-31 19:58] LABS: Glucose,Whole Blood 80 mg/dL (75-99)
[2021-01-31] MEDS: INSULIN DETEMIR (LEVEMIR) 100 UNIT/ML SYR SQ SCH (20:51)
[2021-02-01] MEDS: SODIUM CHLORIDE 0.9% 1,000 ML IV SCH ×3 (04:04→16:37)
[2021-02-01] MEDS: LEVOTHYROXINE 75 MCG TAB PO SCH (05:36)
[2021-02-01 06:19] LABS: Basophils % (A) 0 %; Eosinophils # (A) 0.1 k/uL (0-0.7); Eosinophils % (A) 1 %; HCT 40.7 % (34.0-46.0); Lymphocytes % (A) 12 %; MCH 32.4 pg (25.0-35.0); MCHC 31.9 g/dL (31.0-37.0); MCV 101.5 fL (80.0-100.0); Macrocytosis Slight; Mean Platelet Volume 7.7; Monocytes # (A) 0.8 k/uL (0-1.0); Monocytes % (A) 9 %; Neutrophils # (A) 6.7 k/uL (1.3-7.7); Neutrophils % (A) 77 %; Platelet Count 489 k/uL (150-450); RBC 4.01 m/uL (3.80-5.40); RDW 14.9 % (11.5-15.5); WBC 8.7 k/uL (3.8-10.6)
--- NOTE | 2021-02-01 06:36 | PN ---
PROGRESS NOTE 55-year-old white female, diabetes mellitus, hypertension, metastatic melanoma throughout the liver with elevated bilirubin not improving. The patient wants to be transferred down to [place]. We are trying to arrange that with cancer doctor at [facility]. Otherwise prognosis extremely poor. Hospice care has been recommended by Oncology. She is not eating very much. She is given fluids, which is keeping her hydrated, but she may need hospice care if not improving or transfer to [place] for third opinion. MMODL / IJN: [id number] /
[2021-02-01 06:40] LABS: ALT 103 U/L (4-34); AST 301 U/L (14-36); African American GFR (CKD) >90 (>60 ml/min/1.73 sqM); Albumin 2.4 g/dL (3.5-5.0); Albumin/Globulin Ratio 0.7; Alkaline Phosphatase 297 U/L (38-126); Anion Gap 11 mmol/L; Blood Urea Nitrogen 16 mg/dL (7-17); Calcium 8.3 mg/dL (8.4-10.2); Carbon Dioxide 13 mmol/L (22-30); Chloride 104 mmol/L (98-107); Globulin 3.3 g/dL; Glucose 73 mg/dL (74-99); Non-African American GFR(CKD) >90 (>60 ml/min/1.73 sqM); Potassium 5.1 mmol/L (3.5-5.1); Sodium 128 mmol/L (137-145); Total Protein 5.7 g/dL (6.3-8.2)
[2021-02-01 07:23] LABS: Glucose,Whole Blood 95 mg/dL (75-99)
[2021-02-01] MEDS: INSULIN ASPART (NovoLOG) 100 UNIT/ML VIAL SQ SCH ×4 (07:33→22:20)
[2021-02-01] MEDS: SODIUM BICARBONATE TAB 650 MG TAB PO SCH ×3 (07:57→21:27)
[2021-02-01] MEDS: VENLAFAXINE HCL ER 37.5 MG CAP PO SCH ×2 (07:57→21:27)
--- NOTE | 2021-02-01 09:48 | CDI ---
Documentation Clarification Form 2nd Request Date: 01/31/2021 01:36:20 PM From: Elyssa Pal RN, CCDS Admit Date: 01/25/2021 09:37:00 PM Patient Name: Li Cameron Visit Number: [id number] ATTENTION: The Clinical Documentation Specialists (CDI) and [facility] Coding Staff appreciate your assistance in clarifying documentation. Please respond to the clarification below the line at the bottom and electronically sign. The CDI & [facility] Coding staff will review the response and follow-up if needed. Please note: Queries are made part of the Legal Health Record. If you have any questions, please contact the author of this message via ITS. Dr. Johnny Mitchell Your patient has the documented diagnosis of unspecified Diastolic CHF [in the 01/26 H&P Additional information regarding the acuity of CHF is requested. 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 In your professional opinion, can you please clarify the acuity of CHF if known? [ ] Acute Diastolic Heart Failure (preserved EF) [ ] Chronic Diastolic Heart Failure (preserved EF) [ ] Acute on Chronic Diastolic Heart Failure (preserved EF) [ ] Other, please specify [ ] Unable to determine (Template Last Revised: May 2020) MTDD
[2021-02-01 12:37] LABS: Glucose,Whole Blood 95 mg/dL (75-99)
--- NOTE | 2021-02-01 14:48 | P.PN ---
Subjective Progress Note Date: 02/01/21 Principal diagnosis: increased liver masses, Melanoma Patient continues to be undecided on what she would like to do. Attempted to call brother Mauricio again to see if any questions, clarifications I could answer for him. He did not answer. Objective - Vital Signs Vital signs: Vital Signs Temp 97.5 F L 02/01/21 12:54 Pulse 87 02/01/21 12:54 Resp 16 02/01/21 12:54 BP 104/65 02/01/21 12:54 Pulse Ox 97 02/01/21 12:54 Intake & Output 01/31/21 02/01/21 02/01/21 18:59 06:59 18:59 Intake Total 1560 Balance 1560 Intake: Intake, IV Titration 1560 Amount Sodium Chloride 0.9% 1, 1560 000 ml @ 130 mls/hr IV . [facility] Rx#:[id number] Other: Voiding Method Diaper Diaper Diaper Incontinent Incontinent # Voids 2 - Exam Jaundice Icteric Sclera Dry mucus membranes Lungs: Diminished and increased effort Heart Tachy Abd: distended Ext + edema - Labs CBC & Chem 7: 02/01/21 05:31 02/01/21 05:31 Labs: Abnormal Lab Results - Last 24 Hours (Table) 02/01/21 02/01/21 Range/Units 05:31 05:31 MCV 101.5 H (80.0-100.0) fL Plt Count 489 H (150-450) k/uL Sodium 128 L (137-145) mmol/L Carbon Dioxide 13 L (22-30) mmol/L Glucose 73 L (74-99) mg/dL Calcium 8.3 L (8.4-10.2) mg/dL Total Bilirubin 18.0 H* (0.2-1.3) mg/dL AST 301 H (14-36) U/L ALT 103 H (4-34) U/L Alkaline Phosphatase 297 H (38-126) U/L Total Protein 5.7 L (6.3-8.2) g/dL Albumin 2.4 L (3.5-5.0) g/dL Assessment and Plan (1) Hyperbilirubinemia Current Visit: Yes Status: Acute Priority: High Code(s): E80.6 - OTHER DISORDERS OF BILIRUBIN METABOLISM SNOMED Code(s): 32594120 (2) Liver masses Current Visit: Yes Status: Acute Code(s): R16.0 - HEPATOMEGALY, NOT ELSEWHERE CLASSIFIED SNOMED Code(s): 466682950 (3) Melanoma Current Visit: Yes Status: Acute Priority: High Code(s): C43.9 - MALIGNANT MELANOMA OF SKIN, UNSPECIFIED SNOMED Code(s): 975006320 Plan: CT scan with significant progression of disease noted. Detailed Discussion with Dr. Granados from [facility], limited options. Patient is not ready for committing to hospice, palliative or comfort care at this time. However she is not wanting to move forward with chemotherapy over the weekend either and her family is actively searching for a third opinion hospital network to hopefully send her to. Case management consulted for transfer to [facility] when bed available for second opinion related to oncology - Unfortunetly they have no transfer beds available and will not take second opinions at this time. Long discussion of code status and at this time she would not like to change anything. I have left brother Mauricio a message on his phone Dr. Dailey did speak with Dr. Alvares at [facility] who unfortunately provided the same recommendations as hospice being the most appropriate and then if she would like to try chemo or gleevac. 2-3 weeks for gleevac. Liver function continues to rise, which makes difficult to treat with chemo and the likelihood that she will respond even less, patient is aware of this Physician Attest: I have completed the full history and physical and developed the full impression and plan, agree with dictation, dictated as a scribe.
[2021-02-01 15:20] VITALS: BMI 27.7
[2021-02-01 17:49] LABS: Glucose,Whole Blood 93 mg/dL (75-99)
[2021-02-01 20:15] LABS: Glucose,Whole Blood 76 mg/dL (75-99)
[2021-02-01] MEDS: INSULIN DETEMIR (LEVEMIR) 100 UNIT/ML SYR SQ SCH (22:20)
--- NOTE | 2021-02-01 23:52 | PN ---
PROGRESS NOTE ADDENDUM: Please add chronic diastolic heart failure. MMODL / IJN: [id number] /
--- NOTE | 2021-02-01 23:55 | PN ---
PROGRESS NOTE This is 55-year-old white female, metastatic melanoma, metastatic into the liver. Bilirubin remains high around 18. She is awaiting a transfer to [place]. She is trying to get her brother to get her into [facility] on transfer for cancer treatment. Cardiovascular S1-S2. Lungs clear. GI: Soft, distended due to obesity. Hematology negative Homans. Psych: Fair mood and affect. ASSESSMENT: 1. Jaundice, elevated bilirubin, enteric sclerae, dry mucous membranes. 2. Liver masses. 3. Hyperbilirubinemia. 4. Melanoma. 5. Elevated bilirubin, continues to stay high despite fluid rehydration. 6. Diabetes mellitus, stable without any medications. Oncology is trying to get her back on chemo or Gleevec 2-3 weeks for Gleevec. Liver functions continues to rise. Patient is aware of the very poor prognosis. Does not want hospice at this time. Prognosis guarded. MMODL / IJN: [id number] /
[2021-02-02] MEDS: SODIUM CHLORIDE 0.9% 1,000 ML IV SCH ×3 (00:59→14:50)
[2021-02-02 03:10] LABS: Glucose,Whole Blood 112 mg/dL (75-99)
[2021-02-02 04:22] LABS: Basophils % (A) 1 %; Eosinophils # (A) 0.1 k/uL (0-0.7); Eosinophils % (A) 1 %; HGB 12.8 gm/dL (11.4-16.0); Lymphocytes # (A) 0.9 k/uL (1.0-4.8); Lymphocytes % (A) 11 %; MCH 32.4 pg (25.0-35.0); MCV 101.4 fL (80.0-100.0); Macrocytosis Slight; Mean Platelet Volume 7.5; Monocytes # (A) 0.7 k/uL (0-1.0); Monocytes % (A) 9 %; Neutrophils # (A) 6.3 k/uL (1.3-7.7); Neutrophils % (A) 77 %; Platelet Count 459 k/uL (150-450); RBC 3.94 m/uL (3.80-5.40); WBC 8.2 k/uL (3.8-10.6)
[2021-02-02 04:51] LABS: ALT 99 U/L (4-34); AST 290 U/L (14-36); African American GFR (CKD) >90 (>60 ml/min/1.73 sqM); Albumin 2.4 g/dL (3.5-5.0); Albumin/Globulin Ratio 0.8; Alkaline Phosphatase 301 U/L (38-126); Anion Gap 9 mmol/L; Blood Urea Nitrogen 16 mg/dL (7-17); Calcium 8.3 mg/dL (8.4-10.2); Carbon Dioxide 13 mmol/L (22-30); Chloride 106 mmol/L (98-107); Globulin 3.1 g/dL; Glucose 80 mg/dL (74-99); Non-African American GFR(CKD) >90 (>60 ml/min/1.73 sqM); Potassium 4.7 mmol/L (3.5-5.1); Sodium 128 mmol/L (137-145); Total Protein 5.5 g/dL (6.3-8.2)
[2021-02-02 04:59] LABS: Total Bilirubin 17.4 mg/dL (0.2-1.3)
[2021-02-02] MEDS: LEVOTHYROXINE 75 MCG TAB PO SCH (05:52)
[2021-02-02 07:03] LABS: Glucose,Whole Blood 84 mg/dL (75-99)
[2021-02-02] MEDS: INSULIN ASPART (NovoLOG) 100 UNIT/ML VIAL SQ SCH ×4 (07:04→20:39)
[2021-02-02] MEDS: SODIUM BICARBONATE TAB 650 MG TAB PO SCH ×3 (07:30→20:41)
[2021-02-02] MEDS: VENLAFAXINE HCL ER 37.5 MG CAP PO SCH ×2 (07:30→20:41)
[2021-02-02 12:25] LABS: Glucose,Whole Blood 88 mg/dL (75-99)
[2021-02-02 17:01] LABS: Glucose,Whole Blood 89 mg/dL (75-99)
--- NOTE | 2021-02-02 19:21 | P.PN ---
Subjective Progress Note Date: 02/02/21 Principal diagnosis: increased liver masses, Melanoma Attempted to call brother Mauricio again, I have left two voicemails at this time without return. Again long discussion with patient regarding goals of care. She met with hospice today, she is scared but voices she wants to be home! We thoroughly discussed code status again, Lisa (RN) at bedside during discussion. Patient has verbalized no intubation and no chest compressions. Will continue with other life saving measures at this time. Objective - Vital Signs Vital signs: Vital Signs Temp 97.7 F 02/02/21 04:56 Pulse 89 02/02/21 04:56 Resp 16 02/02/21 04:56 BP 125/76 02/02/21 04:56 Pulse Ox 95 02/02/21 04:56 Intake & Output 02/01/21 02/02/21 02/02/21 18:59 06:59 18:59 Intake Total 1800 Balance 1800 Weight 85.275 kg Intake: Intake, IV Titration 1560 Amount Sodium Chloride 0.9% 1, 1560 000 ml @ 130 mls/hr IV . Q7H42M [facility] Rx#:[id number] Oral 240 Other: Voiding Method Diaper Diaper Diaper Incontinent Incontinent Incontinent # Voids 3 2 - Exam Jaundice Icteric Sclera Dry mucus membranes Lungs: Diminished and increased effort Heart Tachy Abd: distended Ext + edema - Labs CBC & Chem 7: 02/02/21 04:00 02/02/21 04:00 Labs: Abnormal Lab Results - Last 24 Hours (Table) 02/02/21 02/02/21 02/02/21 Range/Units 03:09 04:00 04:00 MCV 101.4 H (80.0-100.0) fL Plt Count 459 H (150-450) k/uL Lymphocytes # 0.9 L (1.0-4.8) k/uL Sodium 128 L (137-145) mmol/L Carbon Dioxide 13 L (22-30) mmol/L POC Glucose (mg/dL) 112 H (75-99) mg/dL Calcium 8.3 L (8.4-10.2) mg/dL Total Bilirubin 17.4 H* (0.2-1.3) mg/dL AST 290 H (14-36) U/L ALT 99 H (4-34) U/L Alkaline Phosphatase 301 H (38-126) U/L Total Protein 5.5 L (6.3-8.2) g/dL Albumin 2.4 L (3.5-5.0) g/dL Assessment and Plan (1) Hyperbilirubinemia Current Visit: Yes Status: Acute Priority: High Code(s): E80.6 - OTHER DISORDERS OF BILIRUBIN METABOLISM SNOMED Code(s): 26373619 (2) Liver masses Current Visit: Yes Status: Acute Code(s): R16.0 - HEPATOMEGALY, NOT ELSEWHERE CLASSIFIED SNOMED Code(s): 058917940 (3) Melanoma Current Visit: Yes Status: Acute Priority: High Code(s): C43.9 - MALIGNANT MELANOMA OF SKIN, UNSPECIFIED SNOMED Code(s): 391176819 Plan: CT scan with significant progression of disease noted. Detailed Discussion with Dr. Granados from [facility], limited options. Patient is not ready for committing to hospice, palliative or comfort care at this time. However she is not wanting to move forward with chemotherapy over the weekend either and her family is actively searching for a third opinion hospital network to hopefully send her to. Case management consulted for transfer to [facility] when bed available for second opinion related to oncology - Unfortunetly they have no transfer beds available and will not take second opinions at this time. Long discussion of code status and at this time she would not like to change anything. I have left brother Mauricio a message on his phone Dr. Dailey did speak with Dr. Alvares at [facility] who unfortunately provided the same recommendations as hospice being the most appropriate and then if she would like to try chemo or gleevac. 2-3 weeks for gleevac. Liver function continues to rise, which makes difficult to treat with chemo and the likelihood that she will respond even less, patient is aware of this DNR with Instructions today Plan: - Discharge home tomorrow with Hospice care, will need hospital bed - At that time if they would like to pursue another opinion they may do so from home as [facility] will not accept hospital to hospital transfer for second opinion - Greater than 25 minutes spent with patient re-discussing goals and unfortunate situation
[2021-02-02 20:12] LABS: Glucose,Whole Blood 78 mg/dL (75-99)
[2021-02-02] MEDS: INSULIN DETEMIR (LEVEMIR) 100 UNIT/ML SYR SQ SCH (20:39)
--- NOTE | 2021-02-02 21:48 | PN ---
PROGRESS NOTE I am covering for Dr. Mitchell. DATE OF SERVICE: 02/02/2021 This 55-year-old woman who was admitted with a liver mass and possible melanoma secondary is being closely monitored. Patient is jaundiced also. Hematology/Oncology is following the patient closely and recommended outpatient hospice. No chest pain. No palpitations. No fever. PHYSICAL EXAMINATION: Alert and oriented x2. Pulse 90, blood pressure 124/76, respirations 16, temperature 97.4, pulse ox 97% on room air. HEENT: Conjunctivae icteric. NECK: No jugular venous distention. CARDIOVASCULAR: S1, S2 muffled. RESPIRATION: Breath sounds diminished at the bases. ABDOMEN: Soft. Distended. NERVOUS SYSTEM: Diffusely weak. LABS: Reviewed. Sodium 128. Bilirubin is 17.4. ASSESSMENT: 1. Metastatic melanoma with liver metastases. 2. Hyperbilirubinemia with acute hepatic failure. 3. Change in mental status, metabolic encephalopathy. 4. Hyponatremia. 5. Metabolic acidosis. 6. Increased mean corpuscular volume. 7. History of diabetes mellitus, type 2. 8. History of colonic polyp. 9. History of anxiety. 10.NO CODE, NO CPR, NO VENT. RECOMMENDATIONS AND DISCUSSION: In this 55-year-old woman who presented with multiple complex medical issues, at this time I would recommend to continue current medications, continue with comfort measures. We will consult Hospice for possible outpatient followup. Prognosis guarded. Further recommendations to follow. MMODL / IJN: [id number] /
[2021-02-03 00:24] LABS: Glucose,Whole Blood 79 mg/dL (75-99)
[2021-02-03] MEDS: SODIUM CHLORIDE 0.9% 1,000 ML IV SCH ×3 (02:04→14:32)
[2021-02-03] MEDS: LEVOTHYROXINE 75 MCG TAB PO SCH (06:12)
[2021-02-03 07:09] LABS: Glucose,Whole Blood 109 mg/dL (75-99)
[2021-02-03] MEDS: INSULIN ASPART (NovoLOG) 100 UNIT/ML VIAL SQ SCH ×2 (07:31→11:55)
[2021-02-03] MEDS: SODIUM BICARBONATE TAB 650 MG TAB PO SCH ×2 (07:34→17:26)
[2021-02-03] MEDS: VENLAFAXINE HCL ER 37.5 MG CAP PO SCH (07:34)
[2021-02-03 11:47] LABS: Glucose,Whole Blood 88 mg/dL (75-99)
[2021-02-03 12:12] VITALS: BP 121/73; PULSE 91; RESP 14; TEMP 97.9
--- NOTE | 2021-02-04 06:09 | P.DS ---
Providers Date of admission: 01/25/21 21:37 Expected date of discharge: 02/03/21 Attending physician: Johnny Mitchell Consults: 01/25/21 21:31 Consult Physician Routine Consulting Provider: Ben Dailey Consult Reason/Comments: liver masses, hyperbilirubinemia Do you want consulting provider notified?: Yes Primary care physician: Johnny Mitchell Hospital Course: Final diagnosis Metastatic melanoma with liver metastases hyperbilirubinemia with acute hepatic failure change in mental status, metabolic encephalopathy hyponatremia metabolic acidosis increased MCV history of diabetes mellitus type 2 history of colonic polyp history of anxiety No code Discharge disposition Patient is being discharged in a stable condition with guarded prognosis to home with hospice. Patient will follow-up with Dr. Mitchell in the outpatient setting upon discharge. Total time taken is greater than 35 minutes. Hospital course This is a pleasant 55 year old female who follows Dr. Campoverde in the outpatient setting and recently admitted for liver mass and melanoma and was being closely monitored by oncology. Patient will be going home with hospice in [facility] following and arranging for transportation today. Currently no reports of chest pain, shortness of breath, or palpitations. Patient is afebrile. No reports of nausea or vomiting and patient is tolerating diet although intake is poor . Patient will be discharged home with hospice. On exam vital signs are stable. Cardio S1, S2 are muffled. Respiratory system shows diminished breath sounds at the bases with no wheezing noted. Abdomen is soft distended and nontender. Nervous system shows no focal deficits. Please refer to medication reconciliation sheet for a list of medications. Patient Condition at Discharge: Fair Plan - Discharge Summary Discharge Rx Participant: Yes New Discharge Prescriptions: New Sodium Bicarbonate Tab 650 mg PO TID 30 Days #90 tab Continue Venlafaxine HCl [Effexor XR] 37.5 mg PO BID Levothyroxine Sodium [Levoxyl] 75 mcg PO DAILY metFORMIN HCL [Glucophage] 1,000 mg PO BID HYDROcodone/APAP 5-325MG [Lorton 5-325] 1 tab PO TID PRN PRN Reason: Pain Changed Insulin Glargine,Hum.rec.anlog [Lantus Solostar Pen] 16 unit SQ HS #0 Discontinued Potassium Chloride ER [K-Dur 20] 20 meq PO BID #60 tab Furosemide [Lasix] 40 mg PO BID #60 tablet Discharge Medication List HYDROcodone/APAP 5-325MG [Lorton 5-325] 1 tab PO TID PRN 01/25/21 [History] Levothyroxine Sodium [Levoxyl] 75 mcg PO DAILY 01/25/21 [History] Venlafaxine HCl [Effexor XR] 37.5 mg PO BID 01/25/21 [History] metFORMIN HCL [Glucophage] 1,000 mg PO BID 01/25/21 [History] Insulin Glargine,Hum.rec.anlog [Lantus Solostar Pen] 16 unit SQ HS #0 02/03/21 [Rx] Sodium Bicarbonate Tab 650 mg PO TID 30 Days #90 tab 02/03/21 [Rx] Follow up Appointment(s)/Referral(s): Johnny Mitchell MD [Primary Care Provider] - 1-2 days Activity/Diet/Wound Care/Special Instructions: Patient is going to [place] with family and hospice Activity as tolerated Continue current diet Follow-up primary care provider on discharge Discharge Disposition: HOME WITH HOSPICE
== END 2021-02-03 18:48 | disposition hospice, home (50) | DRG 435 ==
LOC: EC 15:28 → 5NMEDONC 21:37
PROVIDERS: ADMIT Family Medicine; ATTEND Family Medicine
DX: C78.7 Secondary malignant neoplasm of liver and intrahepatic bile duct (principal); G93.41 Metabolic encephalopathy; K72.00 Acute and subacute hepatic failure without coma; C78.00 Secondary malignant neoplasm of unspecified lung; C20 Malignant neoplasm of rectum; E44.1 Mild protein-calorie malnutrition; E87.1 Hypo-osmolality and hyponatremia; E87.2 Acidosis; I50.32 Chronic diastolic (congestive) heart failure; Z68.27 Body mass index [BMI] 27.0-27.9, adult; E03.9 Hypothyroidism, unspecified; F41.9 Anxiety disorder, unspecified; I11.0 Hypertensive heart disease with heart failure; F32.9 Major depressive disorder, single episode, unspecified; E11.9 Type 2 diabetes mellitus without complications; E66.9 Obesity, unspecified; E80.7 Disorder of bilirubin metabolism, unspecified; E86.0 Dehydration; R63.4 Abnormal weight loss; Z51.5 Encounter for palliative care; Z66 Do not resuscitate; Z20.822 Contact with and (suspected) exposure to COVID-19; Z79.4 Long term (current) use of insulin; Z79.84 Long term (current) use of oral hypoglycemic drugs; Z79.890 Hormone replacement therapy; Z86.010 Personal history of colon polyps
CPT/HCPCS: 36415; 74177; 76705; 80048; 80053; 80076; 81001; 82140; 82248; 83690; 83735; 85025; 85610; 85730; 87077; 87086; 87186; 87635; 96360; 99285